=== PATIENT | female | born 1980 | race Caucasian/White ===

== ENCOUNTER 2018-04-03 13:40 | Emergency (ER) | payer OTHER ==
[2018-04-03 14:35] LABS: ABS Basophils 0.1 10^3/ul (0-0.2); ABS Eosinophils 0.1 10^3/ul (0-0.6); ABS Lymphocytes 1.8 10^3/ul (1.0-4.8); ABS Monocytes 0.5 10^3/ul (0-0.8); ABS Nucleated RBC 0 10^3/ul; Eosinophil % 1.6 % (0-6); Hematocrit 39 % (35-47); Hemoglobin 13.3 g/dl (12.0-16.0); Lymphocyte % 23.6 % (25-47); Mean Corpuscular HGB Conc 34 g/dl (31-36); Mean Corpuscular Hemoglobin 31 pg (27-31); Mean Corpuscular Volume 92 fL (80-97); Mean Platelet Volume 7.6 fL (7.4-10.4); Nucleated Red Blood Cells % 0; Platelet Count 262 10^3/ul (150-450); Red Blood Count 4.23 10^6/ul (4.00-5.40); Red Cell Distribution Width 13 % (10.5-15); White Blood Count 7.5 10^3/ul (3.5-10.8)
--- OUTSIDE RECORDS SUMMARY | 2018-04-03 14:39 | XMS REPORT ---
:1980 Author Organization [facility] Address [address] [place] [address] Care Team Providers Name Role Phone Marquita Alatorre Unavailable Unavailable PROBLEMS Type Condition ICD9-CM XKI66-NE Onset Condition SNOMED Code Code Code Dates Status Problem Post-traumatic F43.10 Active 09806562 stress disorder, unspecified Problem Major depressive F32.9 Active 28083016 disorder, single episode, unspecified Problem Generalized anxiety F41.1 Active 53535436 disorder Problem Slow transit K59.01 Active 83084664 constipation Problem Incomplete tear of M75.112 Active 295639324 left rotator cuff Problem Migraine without G43.009 Active 217848075 aura and without status migrainosus, not intractable Problem Other chronic pain G89.29 Active 82903949 Problem Scabies B86 Active 764670134 Problem Chronic tension-type G44.229 Active 255217128 headache, not intractable Problem Tobacco use Z72.0 Active 764256183 Problem Asthma, unspecified J45.909 Active 90527261 asthma severity, unspecified whether complicated, unspecified whether persistent Problem Gastroesophageal K21.9 Active 732876139 reflux disease without esophagitis Problem Pure E78.00 Active 398071534 hypercholesterolemia , unspecified Problem Hypersomnia, G47.10 Active 88733836 unspecified Problem Essential (primary) I10 Active 51371620 hypertension Problem PCOS (polycystic E28.2 Active 62005596 ovarian syndrome) Problem Vitamin D E55.9 Active 28790538 deficiency, unspecified Problem Obstructive sleep G47.33 Active 78897741 apnea (adult) (pediatric) Problem Type 2 diabetes E11.9 Active 180780705 mellitus without complications ALLERGIES No Information ENCOUNTERS Encounter Location Date Diagnosis [address] Feb, [id number] Feb, [id number] [address] Feb, Generalized anxiety disorder F41.1 [id number] ; Type 2 diabetes mellitus without complications E11.9 ; Gastroesophageal reflux disease without esophagitis K21.9 ; Slow transit constipation K59.01 and Anemia due to other cause, not classified D64.[address], [place] Feb, [id number] [address] Dec, [address] Dec, [address] Dec, [address] Nov, Status post arthroscopy of [id number] shoulder Z98.890 ; Pain in right shoulder M25.511 and Pain in left shoulder M25.[address], [place] Nov, [id number] [address] Nov, Pre-op testing Z01.[id number] Nov, [address] Oct, [id number] [address] September, [address], [place] September, [address] September, [address] September, Migraine without aura and without [id number] status migrainosus, not intractable G43.009 and Chronic tension-type headache, not intractable G44.[address], [place] September, [address] September, [id number] [address] [place], [id number] [facility] [address] [facility], [place] Aug, [id number] [facility] [address] [facility] Aug, Dizziness R42 ; Pain in left [id number] shoulder M25.512 and Other chronic pain G89.29 [facility] [address] [facility], [place] Aug, [id number] [facility] [address] [facility], [place] Jul, [id number] [facility] [address] [facility] Jul, [id number] [facility] [address] [place] [address], [place], [id number] [facility] [address], [place], [address], [place] Jun, Dizziness R42 [id number], [place] May, [id number] [facility] [address] [place] [address], [place], [address], [place] May, Obstructive sleep apnea ( adult) [id number] (pediatric) G47.33 ; Type 2 diabetes mellitus without complications E11.9 and Major depressive disorder, single episode, unspecified F32.[address], [place] Apr, Generalized anxiety disorder F41.1 [id number] IMMUNIZATIONS No Known Immunizations SOCIAL HISTORY Never Assessed REASON FOR REFERRAL FUNCTIONAL STATUS PLAN OF CARE VITAL SIGNS MEDICATIONS Unknown Medications PROCEDURES No Known procedures RESULTS No Results REASON FOR VISIT linzess coverage Insurance Providers [facility] Member Patient Patient Patient Patient Patient Subscriber Subscriber Subscriber Group Insurance Plan Plan Plan Plan ID Relationship Address Phone Name Date of ID Name Date of No Type Insurance Insurance Insurance Coverage to Subscriber Address Phone Name Dates [place] [address] self Marquita [id number] Medicaid [id number] Medicaid Edith [address] [facility] [address] Medicaid Computer Medicaid self Marquita [id number] [facility] [address] [facility] [id number] [place] [address] [place] self Marquita [id number] MEDICAID [place]ICA[place] [id number] MEDICAL (GENERAL) HISTORY Type Description Date Medical History Asthma, unspecified asthma severity, unspecified whether complicated, unspecified whether persistent Medical History Hypersomnia, unspecified Medical History Gastroesophageal reflux disease without esophagitis Medical History Abnormal findings on diagnostic imaging of other parts of digestive tract Medical History Major depressive disorder, single episode, unspecified Medical History Pain in left shoulder Medical History Acute embolism and thrombosis of left popliteal vein Medical History Migraine without aura and without status migrainosus, not intractable Medical History Generalized anxiety disorder Medical History Vitamin D deficiency, unspecified Medical History Post-traumatic stress disorder, unspecified Medical History Scabies Medical History Tobacco use Medical History Pure hypercholesterolemia, unspecified Medical History PCOS (polycystic ovarian syndrome) Medical History Incomplete tear of left rotator cuff Surgical History Colonoscopy to the hepatic flexure area. 05/25/2015 Surgical History Diagnostic laparoscopy (pelvis) 04/27/2015 Surgical History cholecystectomy 1999 Surgical History appendectomy 2001 Surgical History salpingo-oophorectomy 2001 Surgical History hysterectomy, total with unilateral salpingo-oophorectomy 2010 (USO) Surgical History carpal tunnel release bilateral 2011 Surgical History Hernia Repair 2005 Surgical History section 10/25/2002 Surgical History gastric bypass 11/2016 Surgical History L arthroscopy shoulder 12/05/2017
[2018-04-03 14:55] LABS: EGFR Non-African American 102.8 (>60)
[2018-04-03 19:57] VITALS: BP 143/78
--- NOTE | 2018-04-03 21:20 | ED ---
Lower Extremity - HPI Summary HPI Summary: patient is a 38-year-old female with a history of a DVT and PE presenting to the ED with right lower extremity pain 2 days. She denies any known injury or trauma. She states she had a gastric bypass 1 year ago and following that had a DVT and PE. She was on blood thinners for a while, however denies any at this time. She states she has been having intermittent calf pain with cramping in the bilateral legs for several months, however she states this feels "like my previous DVT." Denies any erythema or warmth. She remains ambulatory. She is not taken anything for pain or used heat to the area. She denies any shortness of breath. - History of Current Complaint Chief Complaint: EDExtremityLower Stated Complaint: RT LEG PAIN/HISTORY OF DVT Time Seen by Provider: 04/03/18 17:39 Hx Obtained From: Patient Onset of Pain: Immediate Severity Initially: Moderate Severity Currently: Moderate Pain Intensity: 1 Pain Scale Used: 0-10 Numeric Timing: Constant Location: Is Discrete @ - right lower extremity pain without swelling or erythema Aggravating Factor(s): Standing, Ambulation Alleviating Factor(s): Rest Able to Bear Weight: Yes - Risk Factors Gout Risk Factors: Age Over 40 DVT Risk Factors: Prior DVT, Prior PE Septic Arthritis Risk Factor: Negative - Allergies/Home Medications Allergies/Adverse Reactions: Allergies Allergy/AdvReac Type Severity Reaction Status Date / Time latex Allergy Unknown Verified 04/03/18 13:48 Reaction Details morphine Allergy Anaphylatic Verified 04/03/18 13:48 Shock quetiapine [From Seroquel] Allergy Agitation Verified 04/03/18 13:48 sertraline [From Zoloft] Allergy Agitation Verified 04/03/18 13:48 sumatriptan [From Imitrex] Allergy Anaphylatic Verified 04/03/18 13:48 Shock PMH/Surg Hx/FS Hx/Imm Hx Previously Healthy: Yes Cardiovascular History: Denies: Hx Hypertension - Immunization History Hx Pertussis Vaccination: No Immunizations Up to Date: Yes Infectious Disease History: No Infectious Disease History: Denies: Traveled Outside the [place] in Last 30 Days - Social History Occupation: Unemployed Lives: With Family Alcohol Use: None Hx Substance Use: No Substance Use Type: Reports: None Hx Tobacco Use: Yes Smoking Status (MU): Current Every Day Smoker Review of Systems Constitutional: Negative Negative: Fever, Chills, Fatigue, Skin Diaphoresis Negative: Palpitations Negative: Shortness Of Breath, Cough Genitourinary: Negative Positive: no symptoms reported, see HPI Positive: Myalgia Skin: Negative Neurological: Negative All Other Systems Reviewed And Are Negative: Yes Physical Exam Triage Information Reviewed: Yes Vital Signs On Initial Exam: Initial Vitals Temp Pulse Resp BP Pulse Ox 98.1 F 80 18 128/74 100 04/03/18 13:43 04/03/18 13:43 04/03/18 13:43 04/03/18 13:43 04/03/18 13:43 Vital Signs Reviewed: Yes Appearance: Positive: Well-Appearing, Well-Nourished Skin: Positive: Warm, Skin Color Reflects Adequate Perfusion Head/Face: Positive: Normal Head/Face Inspection Eyes: Positive: EOMI, BRANDI, Conjunctiva Clear Neck: Positive: Supple Respiratory/Lung Sounds: Positive: Clear to Auscultation, Breath Sounds Present Cardiovascular: Positive: RRR, Pulses are Symmetrical in both Upper and Lower Extremities Musculoskeletal: Positive: Pain @ - right lower extremity pain without swelling or erythema Neurological: Positive: Speech Normal Psychiatric: Positive: Normal, Affect/Mood Appropriate Diagnostics - Vital Signs Vital Signs Temp Pulse Resp BP Pulse Ox 04/03/18 19:55 98.3 F 78 18 143/78 99 04/03/18 19:32 61 109/65 99 04/03/18 19:02 57 104/66 98 04/03/18 19:00 57 97 04/03/18 18:32 65 119/78 97 04/03/18 18:02 58 108/71 99 04/03/18 18:00 80 100 04/03/18 17:32 66 112/74 99 04/03/18 15:30 58 16 107/68 100 04/03/18 13:43 98.1 F 80 18 128/74 100 - Laboratory Lab Results: Lab Results 04/03/18 04/03/18 04/03/18 Range/Units 14:25 14:25 14:25 WBC 7.5 (3.5-10.8) 10^3/ul RBC 4.23 (4.00-5.40) 10^6/ul Hgb 13.3 (12.0-16.0) g/dl Hct 39 (35-47) % MCV 92 (80-97) fL MCH 31 (27-31) pg MCHC 34 (31-36) g/dl RDW 13 (10.5-15) % Plt Count 262 (150-450) 10^3/ul MPV 7.6 (7.4-10.4) fL Neut % (Auto) 67.6 (38-83) % Lymph % (Auto) 23.6 L (25-47) % [place] % (Auto) 6.5 (0-7) % Eos % (Auto) 1.6 (0-6) % Baso % (Auto) 0.7 (0-2) % Absolute Neuts (auto) 5.0 (1.5-7.7) 10^3/ul Absolute Lymphs (auto) 1.8 (1.0-4.8) 10^3/ul Absolute Monos (auto) 0.5 (0-0.8) 10^3/ul Absolute Eos (auto) 0.1 (0-0.6) 10^3/ul Absolute Basos (auto) 0.1 (0-0.2) 10^3/ul Absolute Nucleated RBC 0 10^3/ul Nucleated RBC % 0 Sodium 139 (135-145) mmol/L Potassium 4.0 (3.5-5.0) mmol/L Chloride 109 (101-111) mmol/L Carbon Dioxide 27 (22-32) mmol/L Anion Gap 3 (2-11) mmol/L BUN 18 (6-24) mg/dL Creatinine 0.64 (0.51-0.95) mg/dL Est GFR ( Amer) 124.4 (>60) Est GFR (Non-Af Amer) 102.8 (>60) BUN/Creatinine Ratio 28.1 H (8-20) Glucose 133 H (70-100) mg/dL Lactic Acid 0.6 (0.5-2.0) mmol/L Calcium 9.0 (8.6-10.3) mg/dL Total Bilirubin 0.50 (0.2-1.0) mg/dL AST 13 (13-39) U/L ALT 14 (7-52) U/L Alkaline Phosphatase 72 (34-104) U/L Troponin I 0.00 (<0.04) ng/mL Total Protein 6.5 (6.4-8.9) g/dL Albumin 4.0 (3.2-5.2) g/dL Globulin 2.5 (2-4) g/dL Albumin/Globulin Ratio 1.6 (1-3) Result Diagrams: 04/03/18 14:25 04/03/18 14:25 Lab Statement: Any lab studies that have been ordered have been reviewed, and results considered in the medical decision making process. Lower Extremity Course/Dx - Course Course Of Treatment: During the course treatment, the patient is evaluated for right-sided lower extremity pain. Denies any swelling, erythema, warmth. Previous DVT to the left leg as well as PE following gastric bypass surgery. DVT ultrasound of the right lower extremity obtained which shows no evidence of a DVT. Discussed with the patient possible cramping and have encouraged magnesium due to her bilateral muscle cramping in the lower extremities. Discussed ibuprofen as well as moist heat. Patient will be discharged at this time and voices no concerns. - Diagnoses Differential Diagnosis/HQI/PQRI: Positive: DVT, Sprain, Strain Provider Diagnoses: Right calf pain Discharge - Sign-Out/Discharge Documenting (check all that apply): Patient Departure - Discharge Plan Condition: Stable Disposition: HOME Forms: *Work Release Referrals: No Primary Care Phys,NOPCP [Primary Care Provider] - Additional Instructions: Magnesium Glycinate 400mg at bedtime Moist heat to the area - Billing Disposition and Condition Condition: STABLE Disposition: Home
== END 2018-04-03 19:55 | disposition home or self-care (01) ==
LOC: ED 13:40
DX: M79.661 Pain in right lower leg (principal); Z86.718 Personal history of other venous thrombosis and embolism; Z88.5 Allergy status to narcotic agent; Z88.8 Allergy status to other drugs, medicaments and biological substances; Z91.040 Latex allergy status; F17.200 Nicotine dependence, unspecified, uncomplicated
CPT/HCPCS: 36415; 71046; 80053; 83605; 84484; 85025; 93005; 99282

== ENCOUNTER 2018-06-08 21:33 | Emergency (ER) | payer OTHER ==
[2018-06-08] MEDS ORDERED: NS 0.9% 1000 ML* 1,000 ML IV ONE (23:15)
[2018-06-08] MEDS ORDERED: fentaNYL* 50 MCG/ML 2 ML VIAL (100 MCG VIAL) IV SLOW PU ONE (23:15)
[2018-06-08 23:44] LABS: ABS Basophils 0.1 10^3/ul (0-0.2); ABS Eosinophils 0.1 10^3/ul (0-0.6); ABS Lymphocytes 2.6 10^3/ul (1.0-4.8); ABS Monocytes 0.6 10^3/ul (0-0.8); ABS Neutrophils 8.2 10^3/ul (1.5-7.7); ABS Nucleated RBC 0 10^3/ul; Eosinophil % 0.7 %; Hematocrit 43 % (35-47); Hemoglobin 14.2 g/dl (12.0-16.0); Lymphocyte % 22.6 %; Mean Corpuscular HGB Conc 33 g/dl (31-36); Mean Corpuscular Hemoglobin 30 pg (27-31); Mean Corpuscular Volume 90 fL (80-97); Mean Platelet Volume 7.7 fL (7.4-10.4); Nucleated Red Blood Cells % 0.1; Platelet Count 279 10^3/ul (150-450); Red Blood Count 4.72 10^6/ul (4.00-5.40); Red Cell Distribution Width 12 % (10.5-15); White Blood Count 11.6 10^3/ul (3.5-10.8)
[2018-06-08 23:59] LABS: Urine Color Yellow
[2018-06-09] LABS: Urine Appearance Cloudy; Urine Bacteria Absent (Absent); Urine Bilirubin Negative (Negative); Urine Blood Negative (Negative); Urine Glucose Negative (Negative); Urine Ketones 1+ (Negative); Urine Nitrite Negative (Negative); Urine Protein 1+(30 mg/dL) (Negative); Urine Red Blood Cell Absent (Absent); Urine Specific Gravity 1.026 (1.010-1.030); Urine Urobilinogen Negative (Negative); Urine White Blood Cell Trace(0-5/hpf) (Absent)
[2018-06-09 00:01] LABS: ALT 14 U/L (7-52); AST 15 U/L (13-39); Albumin 4.3 g/dL (3.2-5.2); Albumin/Globulin Ratio 1.4 (1-3); Alkaline Phosphatase 84 U/L (34-104); Anion Gap 7 mmol/L (2-11); BUN/Creatinine Ratio 19.4 (8-20); Blood Urea Nitrogen 14 mg/dL (6-24); C Reactive Protein 1.43 mg/L (<8.01); CO2 Carbon Dioxide 29 mmol/L (22-32); Calcium 9.8 mg/dL (8.6-10.3); Chloride 103 mmol/L (101-111); EGFR Non-African American 89.7 (>60); Globulin 3.1 g/dL (2-4); Glucose 85 mg/dL (70-100); Potassium 3.5 mmol/L (3.5-5.0); Sodium 139 mmol/L (135-145); Total Protein 7.4 g/dL (6.4-8.9)
[2018-06-09] MEDS ORDERED: Iohexol 300* (CONTRAST) 10 ML SDV IV ONE (00:22)
--- NOTE | 2018-06-09 01:03 | ED ---
Back Pain - HPI Summary HPI Summary: Patient complains of bilateral lower back pain 2 weeks with intermittent radiation to abdomen. Back pain worse with movement, twisting, bending. Back pain radiates to lower abdomen. Denies trauma, fever, cough, sore throat, CP, SOB, N/V/D, change in urine, change in BM, vaginal symptoms. Medical history is chronic migraines. Abdominal surgical history includes gastric bypass 1 year ago, partial hysterectomy with left ovary remaining. Back pain currently rated 9/10, abdominal pain rated 4/10. - History of Current Complaint Chief Complaint: EDBackInjuryPain Stated Complaint: LOWER BACK PAIN Time Seen by Provider: 06/08/18 22:58 Hx Obtained From: Patient Onset/Duration: Gradual Onset Onset/Duration: Started Weeks Ago Timing: Constant Severity Initially: Severe Severity Currently: Severe Pain Intensity: 9 Pain Scale Used: 0-10 Numeric Character: Sharp, Aching Aggravating Symptom(s): Movement, Lifting, Bending Alleviating Symptom(s): Rest, Position - Allergies/Home Medications Allergies/Adverse Reactions: Allergies Allergy/AdvReac Type Severity Reaction Status Date / Time latex Allergy Unknown Verified 04/03/18 13:48 Reaction Details morphine Allergy Anaphylatic Verified 04/03/18 13:48 Shock quetiapine [From Seroquel] Allergy Agitation Verified 04/03/18 13:48 sertraline [From Zoloft] Allergy Agitation Verified 04/03/18 13:48 sumatriptan [From Imitrex] Allergy Anaphylatic Verified 04/03/18 13:48 Shock Home Medications: Home Medications ARIPiprazole TAB* [Abilify 20 MG TAB*] 20 mg PO DAILY 06/08/18 [History Confirmed 06/08/18] Topiramate TAB(*) [Topamax 25 MG tab] 25 mg PO TID 06/08/18 [History Confirmed 06/08/18] levETIRAcetam [Keppra] 500 mg PO BID 06/08/18 [History Confirmed 06/08/18] PMH/Surg Hx/FS Hx/Imm Hx Endocrine/Hematology History: Denies: Hx Diabetes Cardiovascular History: Denies: Hx Hypertension History: Denies: Hx Dialysis, Hx Renal Disease Sensory History: Denies: Hx Eye Prosthesis EENT History: Denies: Hx Deafness Neurological History: Denies: Hx Developmental Delay Psychiatric History: Denies: Hx Autism - Surgical History Surgery Procedure, Year, and Place: HYSTERECTOMY Infectious Disease History: No Infectious Disease History: Denies: Traveled Outside the [place] in Last 30 Days - Social History Alcohol Use: None Hx Substance Use: No Substance Use Type: Reports: None Hx Tobacco Use: Yes Smoking Status (MU): Current Every Day Smoker Review of Systems Constitutional: Negative Eyes: Negative ENT: Negative Cardiovascular: Negative Respiratory: Negative Positive: Abdominal Pain Genitourinary: Negative Musculoskeletal: Other Skin: Negative Neurological: Negative Psychological: Normal All Other Systems Reviewed And Are Negative: Yes Physical Exam - Summary Physical Exam Summary: Tenderness along paraspinal muscles of lower T-spine and L-spine. Mild diffuse tenderness with palpation of abdomen. Physical exam otherwise unremarkable. Patient flexes and extends bilateral lower extremities with some pain. PMS intact distally on bilateral lower extremities. Triage Information Reviewed: Yes Vital Signs On Initial Exam: Initial Vitals Temp Pulse Resp BP Pulse Ox 96.9 F 95 18 128/96 99 06/08/18 21:35 06/08/18 21:35 06/08/18 21:35 06/08/18 21:35 06/08/18 21:35 Vital Signs Reviewed: Yes Appearance: Positive: Well-Appearing Skin: Positive: Warm Head/Face: Positive: Normal Head/Face Inspection Eyes: Positive: Normal Neck: Positive: Supple Respiratory/Lung Sounds: Positive: Clear to Auscultation Cardiovascular: Positive: Normal Abdomen Description: Positive: Other: Musculoskeletal: Positive: Normal Neurological: Positive: Normal Psychiatric: Positive: Normal AVPU Assessment: Alert - Hannah Coma Scale Best Eye Response: 4 - Spontaneous Best Motor Response: 6 - Obeys Commands Best Verbal Response: 5 - Oriented Coma Scale Total: 15 Diagnostics - Vital Signs Vital Signs Temp Pulse Resp BP Pulse Ox 06/08/18 23:41 16 06/08/18 23:28 68 140/96 100 06/08/18 21:35 96.9 F 95 18 128/96 99 - Laboratory Lab Results: Lab Results 06/08/18 06/08/18 06/08/18 Range/Units 23:30 23:30 23:30 WBC 11.6 H (3.5-10.8) 10^3/ul RBC 4.72 (4.00-5.40) 10^6/ul Hgb 14.2 (12.0-16.0) g/dl Hct 43 (35-47) % MCV 90 (80-97) fL MCH 30 (27-31) pg MCHC 33 (31-36) g/dl RDW 12 (10.5-15) % Plt Count 279 (150-450) 10^3/ul MPV 7.7 (7.4-10.4) fL Neut % (Auto) 70.8 % Lymph % (Auto) 22.6 % [place] % (Auto) 5.2 % Eos % (Auto) 0.7 % Baso % (Auto) 0.7 % Absolute Neuts (auto) 8.2 H (1.5-7.7) 10^3/ul Absolute Lymphs (auto) 2.6 (1.0-4.8) 10^3/ul Absolute Monos (auto) 0.6 (0-0.8) 10^3/ul Absolute Eos (auto) 0.1 (0-0.6) 10^3/ul Absolute Basos (auto) 0.1 (0-0.2) 10^3/ul Absolute Nucleated RBC 0 10^3/ul Nucleated RBC % 0.1 Sodium 139 (135-145) mmol/L Potassium 3.5 (3.5-5.0) mmol/L Chloride 103 (101-111) mmol/L Carbon Dioxide 29 (22-32) mmol/L Anion Gap 7 (2-11) mmol/L BUN 14 (6-24) mg/dL Creatinine 0.72 (0.51-0.95) mg/dL Est GFR ( Amer) 108.6 (>60) Est GFR (Non-Af Amer) 89.7 (>60) BUN/Creatinine Ratio 19.4 (8-20) Glucose 85 (70-100) mg/dL Lactic Acid (0.5-2.0) mmol/L Calcium 9.8 (8.6-10.3) mg/dL Total Bilirubin 0.50 (0.2-1.0) mg/dL AST 15 (13-39) U/L ALT 14 (7-52) U/L Alkaline Phosphatase 84 (34-104) U/L C-Reactive Protein 1.43 (<8.01) mg/L Total Protein 7.4 (6.4-8.9) g/dL Albumin 4.3 (3.2-5.2) g/dL Globulin 3.1 (2-4) g/dL Albumin/Globulin Ratio 1.4 (1-3) Lipase < 10 L (11.0-82.0) U/L Urine Color Yellow Urine Appearance Cloudy Urine pH 5.0 (5-9) Ur Specific Bowman 1.026 (1.010-1.030) Urine Protein 1+(30 mg/dl) A (Negative) Urine Ketones 1+ A (Negative) Urine Blood Negative (Negative) Urine Nitrate Negative (Negative) Urine Bilirubin Negative (Negative) Urine Urobilinogen Negative (Negative) Ur Leukocyte Esterase Negative (Negative) Urine WBC (Auto) Trace(0-5/hpf) (Absent) Urine RBC (Auto) Absent (Absent) Ur Squamous Epith Cells Present A (Absent) Urine Bacteria Absent (Absent) Urine Glucose Negative (Negative) Urine Ascorbic Acid Not Reportable 06/08/18 Range/Units 23:30 WBC (3.5-10.8) 10^3/ul RBC (4.00-5.40) 10^6/ul Hgb (12.0-16.0) g/dl Hct (35-47) % MCV (80-97) fL MCH (27-31) pg MCHC (31-36) g/dl RDW (10.5-15) % Plt Count (150-450) 10^3/ul MPV (7.4-10.4) fL Neut % (Auto) % Lymph % (Auto) % [place] % (Auto) % Eos % (Auto) % Baso % (Auto) % Absolute Neuts (auto) (1.5-7.7) 10^3/ul Absolute Lymphs (auto) (1.0-4.8) 10^3/ul Absolute Monos (auto) (0-0.8) 10^3/ul Absolute Eos (auto) (0-0.6) 10^3/ul Absolute Basos (auto) (0-0.2) 10^3/ul Absolute Nucleated RBC 10^3/ul Nucleated RBC % Sodium (135-145) mmol/L Potassium (3.5-5.0) mmol/L Chloride (101-111) mmol/L Carbon Dioxide (22-32) mmol/L Anion Gap (2-11) mmol/L BUN (6-24) mg/dL Creatinine (0.51-0.95) mg/dL Est GFR ( Amer) (>60) Est GFR (Non-Af Amer) (>60) BUN/Creatinine Ratio (8-20) Glucose (70-100) mg/dL Lactic Acid 0.8 (0.5-2.0) mmol/L Calcium (8.6-10.3) mg/dL Total Bilirubin (0.2-1.0) mg/dL AST (13-39) U/L ALT (7-52) U/L Alkaline Phosphatase (34-104) U/L C-Reactive Protein (<8.01) mg/L Total Protein (6.4-8.9) g/dL Albumin (3.2-5.2) g/dL Globulin (2-4) g/dL Albumin/Globulin Ratio (1-3) Lipase (11.0-82.0) U/L Urine Color Urine Appearance Urine pH (5-9) Ur Specific Bowman (1.010-1.030) Urine Protein (Negative) Urine Ketones (Negative) Urine Blood (Negative) Urine Nitrate (Negative) Urine Bilirubin (Negative) Urine Urobilinogen (Negative) Ur Leukocyte Esterase (Negative) Urine WBC (Auto) (Absent) Urine RBC (Auto) (Absent) Ur Squamous Epith Cells (Absent) Urine Bacteria (Absent) Urine Glucose (Negative) Urine Ascorbic Acid Result Diagrams: 06/08/18 23:30 06/08/18 23:30 Lab Statement: Any lab studies that have been ordered have been reviewed, and results considered in the medical decision making process. Back Pain Course/Dx - Course Course Of Treatment: Patient complains of bilateral lower back pain 2 weeks with intermittent radiation to abdomen. Back pain worse with movement, twisting , bending. Back pain radiates to lower abdomen. Denies trauma, fever, cough, sore throat, CP, SOB, N/V/D, change in urine, change in BM, vaginal symptoms. Medical history is chronic migraines. Abdominal surgical history includes gastric bypass 1 year ago, partial hysterectomy with left ovary remaining. Back pain currently rated 9/10, abdominal pain rated 4/10. Physical exam: Tenderness along paraspinal muscles of lower T-spine and L-spine. Mild diffuse tenderness with palpation of abdomen. Physical exam otherwise unremarkable. Patient flexes and extends bilateral lower extremities with some pain. PMS intact distally on bilateral lower extremities. Vital signs within normal limits. WBC 11.6. Labs otherwise unremarkable. CT abdomen and pelvis with contrast positive only for left ovarian cyst. Diagnosis likely muscle spasm of the back. Rx for Valium. Also advised patient to take ibuprofen for pain. - Diagnoses Provider Diagnoses: Muscle spasm Discharge - Sign-Out/Discharge Documenting (check all that apply): Patient Departure - Discharge Plan Condition: Stable Disposition: HOME Prescriptions: Diazepam TAB(*) [Valium TAB(*)] 5 mg PO TID PRN 3 Days #6 tab MDD 3 tabs PRN Reason: Pain Patient Education Materials: Muscle Spasm (ED) Forms: *Work Release Referrals: No Primary Care Phys,NOPCP [Primary Care Provider] - Additional Instructions: Take Valium as directed. Take ibuprofen 600 mg up to 3 times a day. Follow-up with primary care. Return to the ED for any new or worsening symptoms - Billing Disposition and Condition Condition: STABLE Disposition: Home
[2018-06-09] MEDS ORDERED: Diazepam TAB(*) 5 MG PO ONE (02:09)
[2018-06-09 02:31] VITALS: BP 116/78
== END 2018-06-09 02:30 | disposition home or self-care (01) ==
LOC: ED 21:33
DX: M62.830 Muscle spasm of back (principal); M54.5 Low back pain; K44.9 Diaphragmatic hernia without obstruction or gangrene; Z98.84 Bariatric surgery status; Z90.710 Acquired absence of both cervix and uterus; Z88.5 Allergy status to narcotic agent; Z88.8 Allergy status to other drugs, medicaments and biological substances; Z91.040 Latex allergy status; Z72.0 Tobacco use
CPT/HCPCS: 36415; 74177; 80053; 81003; 81015; 83605; 83690; 85025; 86140; 87086; 96374; 99282; A9270-GY; J3010; Q9967

== ENCOUNTER 2018-08-03 21:11 | Emergency (ER) | payer BC, OTHER ==
--- OUTSIDE RECORDS SUMMARY | 2018-08-03 21:31 | XMS REPORT ---
:1980 Author Organization [facility] Address [address] [place] [address] Care Team Providers Name Role Phone Marquita Alatorre Unavailable Unavailable PROBLEMS Type Condition ICD9-CM DAJ17-BL Onset Condition SNOMED Code Code Code Dates Status Problem Pure E78.00 Active 637900353 hypercholesterolemia , unspecified Problem Gastroesophageal K21.9 Active 302630530 reflux disease without esophagitis Problem Asthma, unspecified J45.909 Active 12913039 asthma severity, unspecified whether complicated, unspecified whether persistent Problem Tobacco use Z72.0 Active 511027456 Problem Obstructive sleep G47.33 Active 12090962 apnea (adult) (pediatric) Problem PCOS (polycystic E28.2 Active 58711534 ovarian syndrome) Problem Essential (primary) I10 Active 01798562 hypertension Problem Hypersomnia, G47.10 Active 06937440 unspecified Problem Post-traumatic F43.10 Active 41857327 stress disorder, unspecified Problem Generalized anxiety F41.1 Active 38379582 disorder Problem Major depressive F32.9 Active 42255204 disorder, single episode, unspecified Problem Incomplete tear of M75.112 Active 979305837 left rotator cuff Problem Type 2 diabetes E11.9 Active 334611026 mellitus without complications Problem Slow transit K59.01 Active 52040798 constipation Problem Vitamin D E55.9 Active 05393788 deficiency, unspecified Problem Other chronic pain G89.29 Active 33562692 Problem Migraine without G43.009 Active 904604670 aura and without status migrainosus, not intractable Problem Chronic tension-type G44.229 Active 500203844 headache, not intractable Problem Scabies B86 Active 900872842 ALLERGIES No Information ENCOUNTERS Encounter Location Date Diagnosis [facility] [address], [place] Jul, [id number] [address], [place] May, [id number] [address], [place] Mar, [id number] [address], [place] Feb, [address], [place] Feb, [id number] [address], [place] Feb, Generalized anxiety disorder F41.1 572624482 ; Type 2 diabetes mellitus without complications E11.9 ; Gastroesophageal reflux disease without esophagitis K21.9 ; Slow transit constipation K59.01 and Anemia due to other cause, not classified D64.[address], [place] Feb, [id number] [address], [place] Dec, [address], [place] Dec, [address], [place] Dec, [address], [place] Nov, Status post arthroscopy of [id number] shoulder Z98.890 ; Pain in right shoulder M25.511 and Pain in left shoulder M25.[address], [place] Nov, [id number] [address] Nov, Pre-op testing Z01.[id number], [place] Nov, [address], [place] Oct, [id number] [address], [place] September, [address], [place] September, [address], [place] September, [address], [place] September, Migraine without aura and without 313561499 status migrainosus, not intractable G43.009 and Chronic tension-type headache, not intractable G44.[address], [place] September, [address] September, [id number] [address] Aug, [address] Aug, [id number] [address] Aug, Dizziness R42 ; Pain in left [id number] shoulder M25.512 and Other chronic pain G89.[address], [place] Aug, [id number] [address], [place] Jul, [id number] [address] Jul, [id number] [address] Jun, [address] Jun, [address] Jun, Dizziness R42 [id number], [place] May, [id number] [address], [place] May, [address] May, Obstructive sleep apnea ( adult) 092473618 (pediatric) G47.33 ; Type 2 diabetes mellitus without complications E11.9 and Major depressive disorder, single episode, unspecified F32.[address] Apr, Generalized anxiety disorder F41.1 [id number] IMMUNIZATIONS No Known Immunizations SOCIAL HISTORY Never Assessed REASON FOR REFERRAL FUNCTIONAL STATUS PLAN OF CARE VITAL SIGNS MEDICATIONS Medication Instructions Dosage Frequency Start End Date Duration Status Date Linzess 290 MCG Orally Once a day 1 capsule 24h 30 days Active PROCEDURES No Known procedures RESULTS No Results REASON FOR VISIT REFILL MEDICATION/ PT HAS NEW INS Insurance Providers [facility]ly [facility] Member Patient Patient Patient Patient Patient Subscriber Subscriber Subscriber Group Insurance Plan Plan Plan Plan ID Relationship Address Phone Name Date of ID Name Date of No Type Insurance Insurance Insurance Coverage to Subscriber Address Phone Name Dates Medicaid Computer Medicaid self Marquita [id number] [facility] [employer] [address] [facility] [id number] [address] self Marquita [id number] Medicaid [id number] Medicaid [place] [address] [place] [id number] Rj [address] self Marquita [id number] MEDICAID [place] [id number] MEDICAL (GENERAL) HISTORY Type Description Date Medical [...]
[2018-08-04] MEDS ORDERED: NS 0.9% 1000 ML** 1,000 ML IV ONE (00:29)
[2018-08-04 00:42] LABS: ABS Basophils 0.1 10^3/ul (0-0.2); ABS Eosinophils 0.1 10^3/ul (0-0.6); ABS Monocytes 0.7 10^3/ul (0-0.8); ABS Neutrophils 5.4 10^3/ul (1.5-7.7); ABS Nucleated RBC 0 10^3/ul; Eosinophil % 1.4 %; Hematocrit 40 % (35-47); Hemoglobin 13.4 g/dl (12.0-16.0); Lymphocyte % 24.3 %; Mean Corpuscular HGB Conc 34 g/dl (31-36); Mean Corpuscular Hemoglobin 30 pg (27-31); Mean Corpuscular Volume 90 fL (80-97); Mean Platelet Volume 7.8 fL (7.4-10.4); Nucleated Red Blood Cells % 0; Platelet Count 196 10^3/ul (150-450); Red Blood Count 4.46 10^6/ul (4.00-5.40); Red Cell Distribution Width 13 % (10.5-15); White Blood Count 8.3 10^3/ul (3.5-10.8)
[2018-08-04] MEDS ORDERED: Metoclopramide IV* 5 MG/ML 2 ML VIAL IV ONE (00:44)
[2018-08-04] MEDS ORDERED: Ketorolac INJ* 30 MG/ML 1 ML VIAL IV ONE (00:44)
[2018-08-04] MEDS ORDERED: diPHENhydraMINE IV* 50 MG/ML 1 ml VIAL (BENADRYL) IV ONE (00:44)
[2018-08-04] MEDS ORDERED: Benzonatate CAP* 100 MG PO ONE (00:45)
[2018-08-04] MEDS ORDERED: Albuterol/Ipratropium NEB.SOL* Albuterol 2.5 MG/Ipratropium 0.5 MG 3 ML INH ONE (00:45)
[2018-08-04] MEDS ORDERED: Ibuprofen TAB* 600 MG PO ONE (00:46)
[2018-08-04] MEDS ORDERED: Lidocaine 2% VISCOUS* 15 ML UDC PO ONE (00:46)
[2018-08-04 00:53] LABS: INR 1.02 (0.77-1.02)
[2018-08-04 00:58] LABS: Albumin 4.3 g/dL (3.2-5.2); Albumin/Globulin Ratio 1.7 (1-3); BUN/Creatinine Ratio 16.4 (8-20); Calcium 9.1 mg/dL (8.6-10.3); EGFR Non-African American 97.5 (>60); Globulin 2.5 g/dL (2-4); Potassium 3.7 mmol/L (3.5-5.0); Total Bilirubin 0.3 mg/dL (0.2-1.0); Total Protein 6.8 g/dL (6.4-8.9)
[2018-08-04 01:33] LABS: Urine Appearance Cloudy; Urine Bilirubin Negative (Negative); Urine Blood Negative (Negative); Urine Color Yellow; Urine Glucose Negative (Negative); Urine Ketones Trace (Negative); Urine Nitrite Negative (Negative); Urine Protein Negative (Negative); Urine Specific Gravity 1.019 (1.010-1.030); Urine Urobilinogen Positive (Negative)
[2018-08-04] MEDS ORDERED: Ibuprofen TAB* 600 MG ONE (01:41)
--- NOTE | 2018-08-04 01:50 | ED ---
Influenza-Like Illness - HPI Summary HPI Summary: Patient complains of fever up to 102, chest tightness, headache, cough, nasal congestion, facial pressur, body aches, bilateral ear pain, sore throat 3 days. Patient taking ibuprofen and Tylenol for fever control. Last antipyretic at 4 PM is Tylenol. Denies neck stiffness, N/V/D, abdominal pain, change in urine, change in BM. Medical history is asthma, chronic migraines, PTSD. History of gastric bypass November 2017. Patient has inhalers and nebulizers at home which have provided minimal relief. - History of Current Complaint Chief Complaint: EDFluSymptoms Time Seen by Provider: 08/04/18 00:26 Hx Obtained From: Patient Onset/Duration: Gradual Onset, Lasting Days Severity: Moderate Associated Signs & Symptoms: Fever - Allergy/Home Medications Allergies/Adverse Reactions: Allergies Allergy/AdvReac Type Severity Reaction Status Date / Time latex Allergy Unknown Verified 04/03/18 13:48 Reaction Details morphine Allergy Anaphylatic Verified 04/03/18 13:48 Shock quetiapine [From Seroquel] Allergy Agitation Verified 04/03/18 13:48 sertraline [From Zoloft] Allergy Agitation Verified 04/03/18 13:48 sumatriptan [From Imitrex] Allergy Anaphylatic Verified 04/03/18 13:48 Shock PMH/Surg Hx/FS Hx/Imm Hx Endocrine/Hematology History: Denies: Hx Diabetes Cardiovascular History: Denies: Hx Hypertension Respiratory History: Reports: Hx Asthma, Hx Chronic Obstructive Pulmonary Disease (COPD) History: Denies: Hx Dialysis, Hx Renal Disease Sensory History: Denies: Hx Eye Prosthesis, Hx Deafness Opthamlomology History: Denies: Hx Eye Prosthesis Neurological History: Denies: Hx Developmental Delay Psychiatric History: Denies: Hx Autism - Surgical History Surgery Procedure, Year, and Place: HYSTERECTOMY Infectious Disease History: No Infectious Disease History: Denies: Traveled Outside the [place] in Last 30 Days - Social History Alcohol Use: None Hx Substance Use: No Substance Use Type: Reports: None Hx Tobacco Use: Yes Smoking Status (MU): Current Every Day Smoker Review of Systems Positive: Fever Eyes: Negative Positive: Sore Throat, Ear Ache, Nasal Discharge Positive: Chest Pain Positive: Shortness Of Breath, Cough Gastrointestinal: Negative Genitourinary: Negative Positive: Myalgia Skin: Negative Neurological: Negative Psychological: Normal All Other Systems Reviewed And Are Negative: Yes Physical Exam Triage Information Reviewed: Yes Vital Signs On Initial Exam: Initial Vitals Temp Pulse Resp BP Pulse Ox 98.9 F 88 20 153/96 99 08/03/18 21:23 08/03/18 21:23 08/03/18 21:23 08/03/18 21:23 08/03/18 21:23 Vital Signs Reviewed: Yes Appearance: Positive: Well-Appearing Skin: Positive: Warm Head/Face: Positive: Normal Head/Face Inspection Eyes: Positive: Normal ENT: Positive: Pharyngeal erythema, Nasal congestion, TM bulging, Uvula midline. Negative: Tonsillar swelling, Tonsillar exudate, Trismus, Muffled voice, Hoarse voice Neck: Positive: Supple Respiratory/Lung Sounds: Positive: Clear to Auscultation Cardiovascular: Positive: Normal Abdomen Description: Positive: Nontender Musculoskeletal: Positive: Normal Neurological: Positive: Normal Psychiatric: Positive: Normal AVPU Assessment: Alert - Hannah Coma Scale Best Eye Response: 4 - Spontaneous Best Motor Response: 6 - Obeys Commands Best Verbal Response: 5 - Oriented Coma Scale Total: 15 Diagnostics - Vital Signs Vital Signs Temp Pulse Resp BP Pulse Ox 08/04/18 01:33 99.2 F 78 16 117/74 08/04/18 01:05 77 18 100 08/03/18 21:23 98.9 F 88 20 153/96 99 - Laboratory Lab Results: Lab Results 08/04/18 08/04/18 08/04/18 Range/Units 00:35 00:35 00:35 WBC 8.3 (3.5-10.8) 10^3/ul RBC 4.46 (4.00-5.40) 10^6/ul Hgb 13.4 (12.0-16.0) g/dl Hct 40 (35-47) % MCV 90 (80-97) fL MCH 30 (27-31) pg MCHC 34 (31-36) g/dl RDW 13 (10.5-15) % Plt Count 196 (150-450) 10^3/ul MPV 7.8 (7.4-10.4) fL Neut % (Auto) 65.1 % Lymph % (Auto) 24.3 % Brule % (Auto) 8.0 % Eos % (Auto) 1.4 % Baso % (Auto) 1.2 % Absolute Neuts (auto) 5.4 (1.5-7.7) 10^3/ul Absolute Lymphs (auto) 2.0 (1.0-4.8) 10^3/ul Absolute Monos (auto) 0.7 (0-0.8) 10^3/ul Absolute Eos (auto) 0.1 (0-0.6) 10^3/ul Absolute Basos (auto) 0.1 (0-0.2) 10^3/ul Absolute Nucleated RBC 0 10^3/ul Nucleated RBC % 0 INR (Anticoag Therapy) 1.02 (0.77-1.02) Sodium 136 (135-145) mmol/L Potassium 3.7 (3.5-5.0) mmol/L Chloride 105 (101-111) mmol/L Carbon Dioxide 23 (22-32) mmol/L Anion Gap 8 (2-11) mmol/L BUN 11 (6-24) mg/dL Creatinine 0.67 (0.51-0.95) mg/dL Est GFR ( Amer) 118.0 (>60) Est GFR (Non-Af Amer) 97.5 (>60) BUN/Creatinine Ratio 16.4 (8-20) Glucose 86 (70-100) mg/dL Lactic Acid (0.5-2.0) mmol/L Calcium 9.1 (8.6-10.3) mg/dL Total Bilirubin 0.30 (0.2-1.0) mg/dL AST 14 (13-39) U/L ALT 14 (7-52) U/L Alkaline Phosphatase 84 (34-104) U/L Troponin I 0.00 (<0.04) ng/mL Total Protein 6.8 (6.4-8.9) g/dL Albumin 4.3 (3.2-5.2) g/dL Globulin 2.5 (2-4) g/dL Albumin/Globulin Ratio 1.7 (1-3) Urine Color Urine Appearance Urine pH (5-9) Ur Specific Hitchcock (1.010-1.030) Urine Protein (Negative) Urine Ketones (Negative) Urine Blood (Negative) Urine Nitrate (Negative) Urine Bilirubin (Negative) Urine Urobilinogen (Negative) Ur Leukocyte Esterase (Negative) Urine Glucose (Negative) Group A Strep Rapid (Negative) 08/04/18 08/04/18 08/04/18 Range/Units 00:35 01:22 01:31 WBC (3.5-10.8) 10^3/ul RBC (4.00-5.40) 10^6/ul Hgb (12.0-16.0) g/dl Hct (35-47) % MCV (80-97) fL MCH (27-31) pg MCHC (31-36) g/dl RDW (10.5-15) % Plt Count (150-450) 10^3/ul MPV (7.4-10.4) fL Neut % (Auto) % Lymph % (Auto) % Brule % (Auto) % Eos % (Auto) % Baso % (Auto) % Absolute Neuts (auto) (1.5-7.7) 10^3/ul Absolute Lymphs (auto) (1.0-4.8) 10^3/ul Absolute Monos (auto) (0-0.8) 10^3/ul Absolute Eos (auto) (0-0.6) 10^3/ul Absolute Basos (auto) (0-0.2) 10^3/ul Absolute Nucleated RBC 10^3/ul Nucleated RBC % INR (Anticoag Therapy) (0.77-1.02) Sodium (135-145) mmol/L Potassium (3.5-5.0) mmol/L Chloride (101-111) mmol/L Carbon Dioxide (22-32) mmol/L Anion Gap (2-11) mmol/L BUN (6-24) mg/dL Creatinine (0.51-0.95) mg/dL Est GFR ( Amer) (>60) Est GFR (Non-Af Amer) (>60) BUN/Creatinine Ratio (8-20) Glucose (70-100) mg/dL Lactic Acid 0.5 (0.5-2.0) mmol/L Calcium (8.6-10.3) mg/dL Total Bilirubin (0.2-1.0) mg/dL AST (13-39) U/L ALT (7-52) U/L Alkaline Phosphatase (34-104) U/L Troponin I (<0.04) ng/mL Total Protein (6.4-8.9) g/dL Albumin (3.2-5.2) g/dL Globulin (2-4) g/dL Albumin/Globulin Ratio (1-3) Urine Color Yellow Urine Appearance Cloudy Urine pH 6.0 (5-9) Ur Specific Hitchcock 1.019 (1.010-1.030) Urine Protein Negative (Negative) Urine Ketones Trace A (Negative) Urine Blood Negative (Negative) Urine Nitrate Negative (Negative) Urine Bilirubin Negative (Negative) Urine Urobilinogen Positive A (Negative) Ur Leukocyte Esterase Negative (Negative) Urine Glucose Negative (Negative) Group A Strep Rapid Negative (Negative) Result Diagrams: 08/04/18 00:35 08/04/18 00:35 Lab Statement: Any lab studies that have been ordered have been reviewed, and results considered in the medical decision making process. Flu Symptom Course/Dx - Course Course Of Treatment: Patient complains of fever up to 102, chest tightness, headache, cough, nasal congestion, facial pressur, body aches, bilateral ear pain, sore throat 3 days. Patient taking ibuprofen and Tylenol for fever control. Last antipyretic at 4 PM is Tylenol. Denies neck stiffness, N/V/D, abdominal pain, change in urine, change in BM. Medical history is asthma, chronic migraines, PTSD. History of gastric bypass November 2017. Patient has inhalers and nebulizers at home which have provided minimal relief. Physical exam unremarkable. Vital signs within normal limits. Labs unremarkable. Chest x-ray unremarkable. Strep negative. Patient has had symptoms for 3 days so did not test for flu. Patient felt better after 1 L normal saline, migraine cocktail, Tessalon, viscous lidocaine. Rx for viscous lidocaine, Tessalon. Alternate ibuprofen and Tylenol to 3 hours for control of fever, headache and body aches. Patient understands and approves plan - Diagnoses Provider Diagnoses: Viral syndrome Discharge - Sign-Out/Discharge Documenting (check all that apply): Patient Departure Patient Received Moderate/Deep Sedation with Procedure: No - Discharge Plan Condition: Stable Disposition: HOME Prescriptions: Benzonatate CAP* [Tessalon 100 MG CAP*] 200 mg PO TID 6 Days #40 cap Lidocaine 2% VISCOUS* [Xylocaine 2% Viscous*] 15 ml SWISH SPIT Q6H PRN #1 btl PRN Reason: Pain predniSONE TAB* [Deltasone 20 MG TAB*] 40 mg PO DAILY 5 Days #10 tab Patient Education Materials: Viral Syndrome (ED) Forms: *Work Release Referrals: No Primary Care Phys,NOPCP [Primary Care Provider] - Additional Instructions: Alternate ibuprofen 600 mg with Tylenol 650 mg every 3 hours for control of fever, headache and body aches. Take prednisone as directed to control bronchospasm. Take Tessalon as directed for cough if needed. Use lidocaine for sore throat pain as directed if needed. Drink plenty of fluids to maintain hydration. Rest. Follow-up with primary care. Return to the ED for any new or worsening symptoms. - Billing Disposition and Condition Condition: STABLE Disposition: Home
[2018-08-04 02:54] VITALS: BP 122/74
== END 2018-08-04 02:53 | disposition home or self-care (01) ==
LOC: ED 21:11
DX: B34.9 Viral infection, unspecified (principal); J44.9 Chronic obstructive pulmonary disease, unspecified; Z88.5 Allergy status to narcotic agent; Z88.8 Allergy status to other drugs, medicaments and biological substances; Z91.040 Latex allergy status; F17.200 Nicotine dependence, unspecified, uncomplicated
CPT/HCPCS: 36415; 71045; 80053; 81003; 83605; 84484; 85025; 85610; 87651; 96361; 96374; 96375; 99282; A9270-GY; J1200; J2765

== ENCOUNTER 2019-07-01 17:05 | Emergency (ER) | payer BC, MEDICAID, OTHER ==
--- OUTSIDE RECORDS SUMMARY | 2019-07-01 17:19 | XMS REPORT | Summary of Care ---
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 (VITAMAX) 60 MG Oral Chew Tab aripiprazole Take 1 Tab by 30 Tab 0 Active (ABILIFY) 15 MG Oral mouth EVERY 9 Tab BEDTIME. busPIRone (BUSPAR) Take 1 Tab by 90 Tab 0 Active 10 MG Oral Tab mouth THREE 9 TIMES DAILY. duloxetine Take 1 Cap by 30 Cap 0 Active (CYMBALTA) 30 MG mouth DAILY. 9 Oral CAPSULE ENTERIC COATED PARTICLES sorbitol 70 % Oral Take 15 mL by 360 mL 1 Active Solution mouth DAILY. 9 linaCLOtide Take 1 Tab by 30 Cap 0 Active (LINZESS) 290 MCG mouth DAILY. 9 Oral Cap albuterol HFA Take 2 Puffs 1 Inhaler 0 Active (VENTOLIN HFA) 108 by inhalation 9 (90 Base) MCG/ACT EVERY FOUR Inhalation Aero Soln HOURS NEEDED (shortness of breath, cough or wheeze). albuterol (ACCUNEB) 1.25 mg by 0 Active 1.25 MG/3ML Inhalation-SVN Inhalation Nebu Soln route NEEDED. Thiamine HCl Take 1 Tab by 90 Tab 3 Active (VITAMIN B-1) 100 MG mouth DAILY. 9 Oral TabIndications: Thiamine deficiency Omeprazole 40 MG Take 1 Cap by 60 Cap 5 Active Oral CAPSULE DELAYED mouth TWICE 9 RELEASEIndications: DAILY. Gastroesophageal reflux disease, esophagitis presence not specified lamotrigine Take 1 Tab by 60 Tab 0 Active (LAMICTAL) 25 MG mouth 9 Oral Tab DIRECTED. Increase per written directions topiramate (TOPAMAX) Take 1 Tab by 120 Tab 3 Active 25 MG Oral Tab mouth 9 DIRECTED. 50 Mg in AM, 50 afternoon, 100 Mg at bedtime. Topiramate 50 MG Take 2 Tabs by 60 Tab 0 Active Oral Tab mouth EVERY 9 BEDTIME. levetiracetam Take 1 Tab by 60 Tab 0 05/25/20 Discontinued (KEPPRA) 500 MG Oral mouth TWICE 02 11 (Therapy TabIndications: DAILY. Completed) History of seizure topiramate (TOPAMAX) Take 1 Tab by 30 Tab 0 05/25/20 Discontinued 100 MG Oral mouth EVERY 02 11 (Clarification TabIndications: EVENING. of Order) History of seizure naproxen (NAPROSYN) Take 1 Tab by 30 Tab 0 05/25/20 Discontinued 500 MG Oral Tab mouth DAILY 02 11 (Therapy NEEDED (pain). Completed) predniSONE Take 1 Tab by 5 Tab 0 05/25/20 Discontinued (DELTASONE) 20 MG mouth DAILY. 9 (Therapy Oral TabIndications: Completed) Mild asthma exacerbation amoxicillin-clavulan Take 1 Tab by 14 Tab 0 05/25/20 Discontinued ic acid (AUGMENTIN) mouth TWICE 02 11 (Alternative 875-125 MG Oral DAILY. Therapy) TabIndications: Acute sinusitis, recurrence not specified, unspecified location topiramate (TOPAMAX) Take 1 Tab by 120 Tab 3 05/25/20 Discontinued 25 MG Oral mouth 02 11 (Clarification TabIndications: DIRECTED. 1 of Order) History of seizure tab in Am and 1 tab in afternoon documented as of this encounter (statuses as of 05/25/2019) Active Problems Problem Noted Date Seizure Anxiety and depression Chronic migraine documented as of this encounter (statuses as of 05/25/2019) Resolved Problems Problem Noted Date Resolved Date Type 2 diabetes mellitus 04/01/2019 documented as of this encounter (statuses as of 05/25/2019) Immunizations Name Administration Dates Next Due Influenza (IM) Preservative Free 02/05/2019 documented as of this encounter Social History Tobacco Use Types Packs/Day Years Used Date Current Every Day Smoker 0.5 Smokeless Tobacco: Never Used Alcohol Use Drinks/Week oz/Week Comments Yes rare Sex Assigned at Date Recorded Not on file Job Start Date Occupation Industry Not on file Not on file Not on file Travel History Travel Start Travel End No recent travel history available. documented as of this encounter Last Filed Vital Signs Vital Sign Reading Time Taken Comments Blood Pressure - - Pulse - - Temperature - - Respiratory Rate - - Oxygen Saturation - - Inhaled Oxygen Concentration - - Weight 67.6 kg (149 lb) 05/25/2019 9:08 AM EST Height 165.1 cm (5' 5") 05/25/2019 9:08 AM EST Body Mass Index 24.79 05/25/2019 9:08 AM EST documented in this encounter Patient Instructions Patient InstructionsScott Cadet CRNP - 05/25/2019 9:40 AM ESTWe will add Lamictal as follows (you will receive 25 mg tablets) Week 1: one half tablet daily Week 2: one full tablet daily Week 3: one full tablet twice a day Week 4: one tablet in morning, two tablets at night Week 5: two tablets twice a day every day Call us and stop the Lamictal (lamotrigine) immediately should you develop any kind of rash. We will do a blood draw at your next visit. Follow up here in neurology in six weeks with JOSEMANUEL Irizarry CRNP documented in this encounter Progress Notes Scott Cadet CRNP - 05/25/2019 9:40 AM EST PATIENT: Marquita Sharma : 1980 DATE OF SERVICE: 05/25/2019 REFERRING PRACTITIONER: Aleks Lerma PRIMARY CARE PROVIDER: Regina Potter CHIEF COMPLAINT: Chief Complaint Patient presents with Neurologic Problem HISTORY OF PRESENT ILLNESS: Marquita Sharma is a 39-y.o. female who presents for a consultation on seizures. The spells began aftershe had her gastric bypass. She was dehydrated for a long time and malnourished. She did not follow the diet that was recommended, she ate Popciles for 6 months. The bypass was done due to uncontrolleddiabetes, was on an insulin pump, after the bypass was done the diabetes went away. Bypass done 2015. Then spells began about 8 months after surgery. Got up and was making coffee, felt nauseous and lightheadedness. Went down face forward, was shaking, eyes rolling, foaming at the mouth. Back was arched, apparently had some tonic clonic activity, gasping for breath. Had urinary loss, no bowel loss, didnot bite or cheek. Was confused, "out of it," was amnesic to the event. Wanted to sleep for an extended period of time, had a lot of neck pain. Had some pain where she struck when she fell. Second spell was a week later. Was standing, was doing a belly button piercing at that time. She did lose bladder control, did not bite tongue or cheek. Was very post ictal. Was amnesic to that event. Vomited after both events, as well always has a metallic taste in the mouth post spell. Next spell was three months later. Was playing on the floor with cats, had a staring spell. Last spell was January 2018. [place] as the third spell. Saw neurology near [facility]. Was told it was tension in the neck. Saw another neurologist in [facility]. They felt there that it was due to medication. She went off some meds, but spells persisted but "I haven't had a bad one since 2017." If her talks to her when the shaking of the eyes starts, her talks to her the symptoms will resolve. Was started on Keppra (levetiracetam) at some point, did not decrease the spells. As well was on Topamax (topiramate) at the time. Went off the Keppra ( levetiracetam) on her own. Apparently was on Topamax (topiramate) for migraines. Started the Keppra (levetiracetam) in January 2018 but it made her exhausted so that is when she went off it. Reports she had a normal EEG (brain wave study). She has had a complete hysterectomy. She has suffered from chronic migraines for years. Obviously the Topamax ( topiramate) is not helpingto control the migraines. Past Medical History: Diagnosis Date Anxiety and depression Migraine VONDA (obstructive sleep apnea) Pulmonary embolism (HCC) 2016 after sprained ankle immobility + depot + obese at that time Seizure (HCC) Type 2 diabetes mellitus (HCC) Past Surgical History: Procedure Laterality Date CARPAL TUNNEL RELEASE CHOLECYSTECTOMY HIGH GASTRIC BYPASS 2017 [place] REPAIR INCISIONAL HERNIA,REDUCIBLE 12/03/2018 [place] REPAIR SLIDING INGUINAL HERNIA TOTAL ABD HYSTERECTOMY No family history on file. Current Outpatient Medications Medication Sig albuterol (ACCUNEB) 1.25 MG/3ML Inhalation Nebu Soln 1.25 mg by Inhalation-SVN route NEEDED. albuterol HFA (VENTOLIN HFA) 108 (90 Base) MCG/ACT Inhalation Aero Soln Take 2 Puffs by inhalation EVERY FOUR HOURS NEEDED (shortness of breath, cough or wheeze). aripiprazole (ABILIFY) 15 MG Oral Tab Take 1 Tab by mouth EVERY BEDTIME. busPIRone (BUSPAR) 10 MG Oral Tab Take 1 Tab by mouth THREE TIMES DAILY. duloxetine (CYMBALTA) 30 MG Oral CAPSULE ENTERIC COATED PARTICLES Take 1 Cap by mouth DAILY. lamotrigine (LAMICTAL) 25 MG Oral Tab Take 1 Tab by mouth DIRECTED. Increase per written directions linaCLOtide (LINZESS) 290 MCG Oral Cap Take 1 Tab by mouth DAILY. Omeprazole 40 MG Oral CAPSULE DELAYED RELEASE Take 1 Cap by mouth TWICE DAILY. Pediatric Bjeictfi-Npltxsrw-P (VITAMAX) 60 MG Oral Chew Tab Take by mouth. sorbitol 70 % Oral Solution Take 15 mL by mouth DAILY. Thiamine HCl (VITAMIN B-1) 100 MG Oral Tab Take 1 Tab by mouth DAILY. topiramate (TOPAMAX) 25 MG Oral Tab Take 1 Tab by mouth DIRECTED. 50 Mg in AM, 50 afternoon, 100 Mg at bedtime. Topiramate 50 MG Oral Tab Take 2 Tabs by mouth EVERY BEDTIME. No current facility-administered medications for this visit. Allergies Allergen Reactions Bee Anaphylaxis Latex Respiratory Reaction Morphine HYDRO OPERATOR Reaction Prozac [Fd&C Blue #1-Fd&C Yellow #6-Fluoxetine] Other Reverse effect Zoloft Other Reverse effects Social History Socioeconomic History Marital status: Spouse name: Not on file Number of children: Not on file Years of education: Not on file Highest education level: Not on file Occupational History Not on file Social Needs Financial resource strain: Not on file Food insecurity Worry: Not on file Inability: Not on file Transportation needs Medical: Not on file Non-medical: Not on file Tobacco Use Smoking status: Current Every Day Smoker Packs/day: 0.50 Smokeless tobacco: Never Used Substance and Sexual Activity Alcohol use: Yes Comment: rare Drug use: Not Currently Sexual activity: Not on file Lifestyle Physical activity Days per week: Not on file Minutes per session: Not on file Stress: Not on file Relationships Social connections Talks on phone: Not on file Gets together: Not on file Attends orthodox service: Not on file Active member of club or organization: Not on file Attends meetings of clubs or organizations: Not on file Relationship status: Not on file Intimate partner violence Fear of current or ex partner: Not on file Emotionally abused: Not on file Physically abused: Not on file Forced sexual activity: Not on file Other Topics Concern Not on file Social History Narrative Not on file REVIEW OF SYSTEMS: A comprehensive review of systems was negative except for as noted in the history of present illness/subjective. PHYSICAL EXAMINATION: Ht 5' 5" (1.651 m) | Wt 149 lb (67.6 kg) | BMI 24.79 kg/m Body mass index is 24.79 kg/m. GENERAL: alert, oriented, no acute distress, appears stated age. She and her are excellent historians. SKIN: normal, no rashes or abnormalities noted. HEENT: sclera normal, anicteric, mucous membrane moist, conjunctiva pink and pale, normal dentition, pupils equal, round, reactive to light, extraocular movement intact and normal dentition, tongue midline . NEUROLOGICAL: Cranial nerves: unremarkable. Sensory: normal to pain, touch, vibration and position sensation in upper and lower bilateral extremities Motor: 5/5 in all major muscle groups. Reflexes: 2+ and symmetric Coordination: normal Gait and station: normal. 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 She did not do well on Keppra (levetiracetam). She has not had a significant spell for over a year. As the Topamax (topiramate) is not controlling her migraines I suspect we will be taking her off that in the future so will need to add an AED. Will start a slowly ramping dose of Lamictal (lamotrigine). They were given written instructions on how do achieve this. She as well was instructed that should she develop any type of rash after starting the Lamictal ( lamotrigine) she should discontinue that immediately and contact our office. I suspect she will not be therapeutic at 50 Mg BID and we will need to increase the dose This has been fully explained to the patient, who indicates understanding. All their questions were answered to their satisfaction. She will return for follow up in six weeks with JOSEMANUEL Irizarry as I will be out of the office for an extended period of time. Author: GÉNESIS Rodriges 05/25/2019 12:25 documented in this encounter Plan of Treatment Date Type Specialty Care Team Description 07/06/2019 Office Visit Neurology Melinda Mar PA-C [facility] [place] [id number] [phone] 07/13/2019 Office Visit Family Practice Kateryna Potterzabeth, EXPLOSIVE OPERATOR SUPERVISOR [address] [place] [address] [phone] Health Maintenance Due Date Last Done Comments Diabetic Eye Exam 1980 MEDICARE ANNUAL WELLNESS VISIT 1980 PNEUMOCOCCAL 0-64 YRS (1 of 1 02/10/1984 - PPSV23) DTaP/Tdap/Td Vaccines (1 - 1989 Tdap) HIV SCREENING 1993 FOOT EXAM 02/10/1996 PAP SMEAR 1999 MAMMOGRAM (SCREENING) 2018 HEMOGLOBIN A1C 10/04/2019 04/05/2019, 01/05/2019 DEPRESSION SCREENING 01/06/2020 01/05/2019, 01/05/2019 LIPID DISORDER SCREENING 01/06/2020 01/05/2019 URINE MICROALBUMIN 01/06/2020 01/05/2019 INFLUENZA VACCINE Completed 02/05/2019 HEPATITIS A IMMUNIZATION Aged Out No longer eligible based SERIES on patient's age to complete this topic HPV IMMUNIZATION SERIES Aged Out No longer eligible based on patient's age to complete this topic MENINGOCOCCAL VACCINE IMM Aged Out No longer eligible based on patient's age to complete this topic documented as of this encounter Goals Goal Patient Goal Associated Recent Patient-Stated? Author Type Problems Progress Depression Depression 19 No Aleks Lerma screen (PHQ-9) (01/05/2019 DO Ruben total score < 5 2:13 PM EDT) Note: This is an individualized treatment (depression) goal for Marquita Sharma: Displayed above is your goal for a depression screening (PHQ-9) score that would indicate good control of your depression. Glycohemoglobin A1c < 7.0 Diabetes 5.8 (04/05/2019 8:21 AM No Aleks Lerma DO EST) Note: This is an individualized treatment (diabetes control, HgbA1C) goal for Marquita Sharma: Displayed above is your progress towards your HgbA1C goal. Your goal is shown above (on the left); your most recent HgbA1C is shown on the right. Note that lower numbers are better. Keep a regular sleep schedule Lifestyle No Aleks Lerma DO Note: This is an individualized lifestyle goal for Marquita Sharma: Please maintain a regular sleep schedule. This may help with some symptoms of depression. Keep immunizations current Lifestyle No Aleks Lerma, DO Note: This is an individualized lifestyle goal for Marquita Sharma: Please be sure to keep up-to-date on recommended immunizations. For example, this would include a yearly influenza vaccine. Immunization status can be seen by looking at the Health Maintenance sections of your [facility], Plan of Care, and any After Visit Summaries. Take all prescribed medications as directed Self-management No Aleks Lerma, DO Note: This is an individualized self-management goal for Marquita Sharma: Please take all prescribed medications as directed. 1. Do not skip doses. If you cannot afford your medications, talk with your doctor. 2. Use a pill reminder system such as a pill box if needed. Your pharmacist can help you with this. 3. Contact your Pharmacy 5 days before your medication runs out. If you cannot take your medications for any reasons, talk with your doctor. 4. Please bring all of your medication bottles and inhalers (or a list of all your medications/inhalers) with you to every visit. Potential barriers to meeting all of your care plan goals will continue to be addressed on an ongoing basis. documented as of this encounter Results Not on filedocumented in this encounter Visit Diagnoses Diagnosis Seizure (HCC) Other convulsions Chronic migraine Chronic migraine without aura, without mention of intractable migraine without mention of status migrainosus documented in this encounter Insurance Payer Benefit Plan / Subscriber ID Effective Dates Phone Address Type Group [employer] xxxxxxxxxxxx 2018-Present [employer] MEDIC[employer] BLUE PPO ([phone]) documented as of this encounter
[2019-07-01] MEDS ORDERED: Cyclobenzaprine TAB* 10 MG PO ONE (18:10)
[2019-07-01 18:13] LABS: ABS Basophils 0.1 10^3/ul (0-0.2); ABS Lymphocytes 2.4 10^3/ul (1.0-4.8); ABS Monocytes 0.6 10^3/ul (0-0.8); Eosinophil % 0.5 %; Hematocrit 38 % (35-47); Hemoglobin 13.5 g/dL (12.0-16.0); Lymphocyte % 26.4 %; Mean Corpuscular HGB Conc 35 g/dL (31-36); Mean Corpuscular Hemoglobin 32 pg (27-31); Mean Corpuscular Volume 91 fL (80-97); Mean Platelet Volume 7.3 fL (7.4-10.4); Platelet Count 237 10^3/uL (150-450); Red Blood Count 4.22 10^6 /uL (3.70-4.87); Red Cell Distribution Width 13 % (10-15); White Blood Count 9.1 10^3/uL (3.5-10.8)
[2019-07-01 18:21] LABS: INR 1.08 (0.82-1.09)
[2019-07-01 18:30] LABS: ALT 16 U/L (7-52); AST 21 U/L (13-39); Albumin 4.1 g/dL (3.2-5.2); Albumin/Globulin Ratio 1.7 (1-3); Alkaline Phosphatase 73 U/L (34-104); Anion Gap 5 mmol/L (2-11); BUN/Creatinine Ratio 15.5 (8-20); Blood Urea Nitrogen 11 mg/dL (6-24); C Reactive Protein < 1.00 mg/L (<8.01); CO2 Carbon Dioxide 25 mmol/L (22-32); Calcium 8.9 mg/dL (8.6-10.3); Chloride 107 mmol/L (101-111); EGFR African American 109.8 (>60); EGFR Non-African American 90.7 (>60); Globulin 2.4 g/dL (2-4); Glucose 83 mg/dL (70-100); Potassium 3.8 mmol/L (3.5-5.0); Sodium 137 mmol/L (135-145); Total Protein 6.5 g/dL (6.4-8.9)
--- NOTE | 2019-07-01 19:06 | ED ---
Lower Extremity - HPI Summary HPI Summary: 39-year-old male presents bilaterally leg pain for the past week. She states that she has been having cramping of the legs. It is worse at night. She states she has developed bruising to the area. Area has been swelling. She has a history of DVTs. Has never had this before. Is not currently on blood thinners. Denies any chest pressure or shortness of breath. She denies any recent travel. she denies any back pain. no urinary symptoms. no loss of bowel or bladder. - History of Current Complaint Chief Complaint: EDExtremityLower Stated Complaint: LEG PAIN PER PT Time Seen by Provider: 07/01/19 17:36 Pain Intensity: 8 - Allergies/Home Medications Allergies/Adverse Reactions: Allergies Allergy/AdvReac Type Severity Reaction Status Date / Time bee venom protein (honey bee) Allergy Anaphylatic Verified 07/01/19 17:11 Shock fluoxetine [From Prozac] Allergy Anxiety Verified 07/01/19 17:11 latex Allergy Unknown Verified 04/03/18 13:48 Reaction Details morphine Allergy Anaphylatic Verified 04/03/18 13:48 Shock quetiapine [From Seroquel] Allergy Agitation Verified 04/03/18 13:48 sertraline [From Zoloft] Allergy Agitation Verified 04/03/18 13:48 sumatriptan [From Imitrex] Allergy Anaphylatic Verified 04/03/18 13:48 Shock Home Medications: Home Medications Multivitamin [Multivitamins] 1 cap PO 07/01/19 [History] Omeprazole 1 tab PO TID 07/01/19 [History Confirmed 07/01/19] Topiramate TAB(*) [Topamax 25 MG tab] 200 mg PO DAILY 07/01/19 [History Confirmed 07/01/19] Vitamin B Complex CAP* [B Complex CAP*] 1 cap PO DAILY 07/01/19 [History Confirmed 07/01/19] lamoTRIgine [Lamotrigine] 50 mg PO BID 07/01/19 [History Confirmed 07/01/19] PMH/Surg Hx/FS Hx/Imm Hx Endocrine/Hematology History: Denies: Hx Diabetes Cardiovascular History: Reports: Hx Deep Vein Thrombosis Denies: Hx Hypertension Respiratory History: Reports: Hx Asthma, Hx Chronic Obstructive Pulmonary Disease (COPD) History: Denies: Hx Dialysis, Hx Renal Disease Sensory History: Denies: Hx Eye Prosthesis, Hx Deafness Opthamlomology History: Denies: Hx Eye Prosthesis Neurological History: Denies: Hx Developmental Delay Psychiatric History: Denies: Hx Autism - Surgical History Surgery Procedure, Year, and Place: HYSTERECTOMY Infectious Disease History: No Infectious Disease History: Denies: Traveled Outside the [place] in Last 30 Days - Family History Known Family History: Positive: Unknown - adopted - Social History Alcohol Use: None Hx Substance Use: No Substance Use Type: Reports: None Hx Tobacco Use: Yes Smoking Status (MU): Light Every Day Tobacco Smoker Review of Systems Negative: Fever Negative: Chest Pain Negative: Shortness Of Breath Positive: Myalgia - bilateral calf Positive: Bruising All Other Systems Reviewed And Are Negative: Yes Physical Exam Triage Information Reviewed: Yes Vital Signs On Initial Exam: Initial Vitals Temp Pulse Resp BP Pulse Ox 97.2 F 81 18 139/100 100 07/01/19 17:08 07/01/19 17:08 07/01/19 17:08 07/01/19 17:08 07/01/19 17:08 Vital Signs Reviewed: Yes Appearance: Positive: Well-Appearing Skin: Positive: Warm, Dry Head/Face: Positive: Normal Head/Face Inspection Eyes: Positive: Normal, Conjunctiva Clear ENT: Positive: Pharynx normal Respiratory/Lung Sounds: Positive: Clear to Auscultation, Breath Sounds Present Cardiovascular: Positive: Normal, RRR Musculoskeletal: Positive: Strength/ROM Intact - legs, Other - good pulses, bruising noted to bilateral legs, mild edema noted, tenderness bilateral calf Neurological: Positive: Normal Psychiatric: Positive: Normal Procedures - Sedation Patient Received Moderate/Deep Sedation with Procedure: No Diagnostics - Vital Signs Vital Signs Temp Pulse Resp BP Pulse Ox 07/01/19 17:08 97.2 F 81 18 139/100 100 - Laboratory Lab Results: Lab Results 07/01/19 07/01/19 07/01/19 Range/Units 18:06 18:06 18:06 WBC 9.1 (3.5-10.8) 10^3/uL RBC 4.22 (3.70-4.87) 10^6 /uL Hgb 13.5 (12.0-16.0) g/dL Hct 38 (35-47) % MCV 91 (80-97) fL MCH 32 H (27-31) pg MCHC 35 (31-36) g/dL RDW 13 (10-15) % Plt Count 237 (150-450) 10^3/uL MPV 7.3 L (7.4-10.4) fL Neut % (Auto) 65.5 % Lymph % (Auto) 26.4 % [place] % (Auto) 6.5 % Eos % (Auto) 0.5 % Baso % (Auto) 1.1 % Absolute Neuts (auto) 6.0 (1.5-7.7) 10^3/ul Absolute Lymphs (auto) 2.4 (1.0-4.8) 10^3/ul Absolute Monos (auto) 0.6 (0-0.8) 10^3/ul Absolute Eos (auto) 0.0 (0-0.6) 10^3/ul Absolute Basos (auto) 0.1 (0-0.2) 10^3/ul Absolute Nucleated RBC 0.0 10^3/ul Nucleated RBC % 0.0 INR (Anticoag Therapy) 1.08 (0.82-1.09) Sodium 137 (135-145) mmol/L Potassium 3.8 (3.5-5.0) mmol/L Chloride 107 (101-111) mmol/L Carbon Dioxide 25 (22-32) mmol/L Anion Gap 5 (2-11) mmol/L BUN 11 (6-24) mg/dL Creatinine 0.71 (0.51-0.95) mg/dL Est GFR ( Amer) 109.8 (>60) Est GFR (Non-Af Amer) 90.7 (>60) BUN/Creatinine Ratio 15.5 (8-20) Glucose 83 (70-100) mg/dL Calcium 8.9 (8.6-10.3) mg/dL Magnesium 2.0 (1.9-2.7) mg/dL Total Bilirubin 0.60 (0.2-1.0) mg/dL AST 21 (13-39) U/L ALT 16 (7-52) U/L Alkaline Phosphatase 73 (34-104) U/L C-Reactive Protein < 1.00 (<8.01) mg/L Total Protein 6.5 (6.4-8.9) g/dL Albumin 4.1 (3.2-5.2) g/dL Globulin 2.4 (2-4) g/dL Albumin/Globulin Ratio 1.7 (1-3) Result Diagrams: 07/01/19 18:06 07/01/19 18:06 Lab Statement: Any lab studies that have been ordered have been reviewed, and results considered in the medical decision making process. - Ultrasound No standard instances Ultrasound Interpretation Completed By: Radiologist Summary of Ultrasound Findings: IMPRESSION: No evidence of DVT in the right or the left leg. Re-Evaluation - Re-Evaluation First Eval Re-Evaluation Time: 20:12 Change: Unchanged Comment: symptoms same after flexeril. Lower Extremity Course/Dx - Course Course Of Treatment: 39-year-old male presents bilaterally leg pain for the past week. She states that she has been having cramping of the legs. It is worse at night. She states she has developed bruising to the area. Area has been swelling. She has a history of DVTs. Has never had this before. Is not currently on blood thinners. Denies any chest pressure or shortness of breath. She denies any recent travel. On exam has edema noted to bilateral legs. bruising to [place]. tenderness bilateral calfs. White blood count normal. h/h normal. electrolytes normal. Ultrasound shows no dvt. no improvement with muscle relaxers. told follow up with primary. patient understand and agrees with plan. - Diagnoses Differential Diagnosis/HQI/PQRI: Positive: DVT, Sprain, Strain, Other - metabolic disorder Provider Diagnoses: Bilateral leg cramps Discharge ED - Sign-Out/Discharge Documenting (check all that apply): Patient Departure - Discharge Plan Condition: Good Disposition: HOME Patient Education Materials: Leg Cramps (ED) Referrals: Regina Potter NP [Primary Care Provider] - Additional Instructions: drink plenty of fluids stretch legs follow up with primary within 5 days Return to ED if develop any new or worsening symptoms - Billing Disposition and Condition Condition: GOOD Disposition: Home
[2019-07-01] MEDS ORDERED: Ketorolac INJ* 30 MG/ML 1 ML VIAL IM ONE (20:12)
[2019-07-01 20:58] VITALS: BP 109/62
== END 2019-07-01 20:57 | disposition home or self-care (01) ==
LOC: ED 17:05
DX: R25.2 Cramp and spasm (principal); J44.9 Chronic obstructive pulmonary disease, unspecified; F17.200 Nicotine dependence, unspecified, uncomplicated; Z86.718 Personal history of other venous thrombosis and embolism; Z90.710 Acquired absence of both cervix and uterus; Z79.899 Other long term (current) drug therapy; Z88.5 Allergy status to narcotic agent; Z88.8 Allergy status to other drugs, medicaments and biological substances; Z91.040 Latex allergy status
CPT/HCPCS: 36415; 80053; 83735; 85025; 85610; 86140; 93970; 96372; 99282; A9270-GY; J1885

== ENCOUNTER 2019-07-12 03:30 | Emergency (ER) | payer OTHER ==
[2019-07-12] MEDS ORDERED: Phenazopyridine TAB* 100 MG PO ONE (03:53)
[2019-07-12 03:55] LABS: Urine Appearance Cloudy; Urine Bilirubin Negative (Negative); Urine Blood 2+ (Negative); Urine Color Yellow; Urine Glucose Negative (Negative); Urine Ketones Negative (Negative); Urine Nitrite Negative (Negative); Urine Protein 1+(30 mg/dL) (Negative); Urine Specific Gravity 1.024 (1.010-1.030); Urine Urobilinogen Negative (Negative)
--- NOTE | 2019-07-12 03:59 | ED ---
GI/ HPI - HPI Summary HPI Summary: This pt is a 39 Y/O F presenting to [facility] with a CC of a potential UTI that started on 07/09/2019. She states that the pain worsened this night to a 9/10 in severity. She states that has nausea, migraines, dysuria, and pain radiating into her back from her pubic region. She states that she has no aggravating factors. She states that she has been taking APAP for the pain and drinking cranberry juice. She has a PMHx of Szs and is unsure if she has had a fever or chills. She states that she has had a hysterectomy. - History of Current Complaint Chief Complaint: EDUrogenitalProblems Time Seen by Provider: 07/12/19 03:54 Stated Complaint: POS UTI PER PT Hx Obtained From: Patient Onset/Duration: Started Days Ago - 3, Still Present, Worse Since - tonight Timing: Constant, Lasting Days - 3 Severity: Moderate Current Severity: Severe Pain Intensity: 9 Location of Pain: Groin, Other - radiates to back Additional Location for Females: Uterus Pain Radiates to: Back Associated Signs and Symptoms: Positive: Back Pain, Nausea, Dysuria, Other: - POSITIVE: migraines Aggravating Factor(s): Nothing Alleviating Factor(s): Medication - APAP - Allergy/Home Medications Allergies/Adverse Reactions: Allergies Allergy/AdvReac Type Severity Reaction Status Date / Time bee venom protein (honey bee) Allergy Anaphylatic Verified 07/12/19 03:33 Shock fluoxetine [From Prozac] Allergy Anxiety Verified 07/12/19 03:33 latex Allergy Unknown Verified 07/12/19 03:33 Reaction Details morphine Allergy Anaphylatic Verified 07/12/19 03:33 Shock quetiapine [From Seroquel] Allergy Agitation Verified 07/12/19 03:33 sertraline [From Zoloft] Allergy Agitation Verified 07/12/19 03:33 sumatriptan [From Imitrex] Allergy Anaphylatic Verified 07/12/19 03:33 Shock Home Medications: Home Medications Mirtazapine TAB* [Remeron TAB*] 1 tab PO QPM 07/12/19 [History Confirmed ] PMH/Surg Hx/FS Hx/Imm Hx Previously Healthy: Yes Endocrine/Hematology History: Denies: Hx Diabetes Cardiovascular History: Reports: Hx Deep Vein Thrombosis Denies: Hx Hypertension Respiratory History: Reports: Hx Asthma, Hx Chronic Obstructive Pulmonary Disease (COPD) History: Denies: Hx Dialysis, Hx Renal Disease Sensory History: Denies: Hx Eye Prosthesis, Hx Deafness Opthamlomology History: Denies: Hx Eye Prosthesis Neurological History: Denies: Hx Developmental Delay Psychiatric History: Denies: Hx Autism - Cancer History Hx Chemotherapy: No Hx Radiation Therapy: No - Surgical History Surgical History: Yes Surgery Procedure, Year, and Place: HYSTERECTOMY - Immunization History Immunizations Up to Date: Yes Infectious Disease History: No Infectious Disease History: Denies: Traveled Outside the [place] in Last 30 Days - Family History Known Family History: Positive: Unknown - adopted - Social History Occupation: Employed Full-time Lives: With Family Alcohol Use: None Hx Substance Use: No Substance Use Type: Reports: None Hx Tobacco Use: Yes Smoking Status (MU): Light Every Day Tobacco Smoker Review of Systems Negative: Fever, Chills Positive: Abdominal Pain - groin, Nausea Positive: dysuria Positive: Other - pain radiates to back Positive: Headache - migraine All Other Systems Reviewed And Are Negative: Yes Physical Exam - Summary Physical Exam Summary: Constitutional: Well-developed, Well-nourished, Alert. (-) Distressed Skin: Warm, Dry HENT: Normocephalic; Atraumatic Eyes: Conjunctiva normal Neck: Musculoskeletal ROM normal neck. (-) JVD, (-) Stridor, (-) Tracheal deviation Cardio: Rhythm regular, rate normal, Heart sounds normal; Intact distal pulses; The pedal pulses are 2+ and symmetric. Radial pulses are 2+ and symmetric. (-) Murmur Pulmonary/Chest wall: Effort normal. (-) Respiratory distress, (-) Wheezes, (-) Rales Abd: Soft, Mild L CVA tenderness, (-) Distension, (-) Guarding, (-) Rebound Musculoskeletal: (-) Edema Lymph: (-) Cervical adenopathy Neuro: Alert, Oriented x3 Psych: Mood and affect Normal Triage Information Reviewed: Yes Vital Signs On Initial Exam: Initial Vitals Temp Pulse Resp BP Pulse Ox 97.4 F 83 15 133/95 100 07/12/19 03:31 07/12/19 03:31 07/12/19 03:31 07/12/19 03:31 07/12/19 03:31 Vital Signs Reviewed: Yes Procedures - Sedation Patient Received Moderate/Deep Sedation with Procedure: No Diagnostics - Vital Signs Vital Signs Temp Pulse Resp BP Pulse Ox 07/12/19 03:31 97.4 F 83 15 133/95 100 - Laboratory Lab Statement: Any lab studies that have been ordered have been reviewed, and results considered in the medical decision making process. GIGU Course/Dx - Course Course Of Treatment: This pt is a 39 Y/O F presenting to [facility] with a CC of a potential UTI. She states that the pain worsened this night. She states that has nausea, migraines, dysuria, and pain radiating into her back from her groin. She states that she has no aggravating factors. She states that she has been taking APAP for the pain and drinking cranberry juice. Her PE found that she has CVA tenderness. Her Labratory findings are consistent with a UTI. She will be discharged home with a Dx of a UTI. - Diagnoses Provider Diagnoses: UTI (urinary tract infection) Discharge ED - Sign-Out/Discharge Documenting (check all that apply): Patient Departure - discharge - Discharge Plan Condition: Good Disposition: HOME Prescriptions: Nitrofurantoin Monohyd/M-Cryst [Macrobid 100 mg Capsule] 100 mg PO BID #14 cap Phenazopyridine 200 mg (NF) [Pyridium 200 MG tab *] 200 mg PO TID #10 tab Patient Education Materials: Urinary Tract Infection in Women (ED) Forms: *Work Release Referrals: Regina Potter, POND TENDER [Primary Care Provider] - 2 Days (if not improving) Additional Instructions: PLEASE FOLLOW UP WITH YOUR PRIMARY CARE PROVIDER IN 1-3 DAYS AND RETURN TO THE EMERGENCY DEPARTMENT FOR ANY NEW OR WORSENING SYMPTOMS. - Billing Disposition and Condition Condition: GOOD Disposition: Home - Attestation Statements Document Initiated by Geno: Yes Documenting Scribe: Gerson Rey Provider For Whom Geno is Documenting (Include Credential): Amrik Guillory MD Scribe Attestation: Gerson Carrera, debed for Amrik Guillory MD on 07/12/19 at 1939. Scribe Documentation Reviewed: Yes Provider Attestation: The documentation as recorded by the Gerson mckinney accurately reflects the service I personally performed and the decisions made by me, Amrik Guillory MD Status of Scribe Document: Viewed
[2019-07-12] MEDS ORDERED: Nitrofurantoin Macrocrystals* 100 MG CAP PO ONE (04:10)
--- OUTSIDE RECORDS SUMMARY | 2019-07-12 04:17 | XMS REPORT | Summary of Care ---
:1980 Author Organization [facility] Address [address] [place] [address] Care Team Providers Name Role Phone Regina Potter Primary Care Provider Reason for Referral Refer to Department Only (Routine) Status Reason Specialty Diagnoses / Referred By Referred To Procedures Contact Contact Pending Review Gastroenterology Diagnoses Weight loss, unintentional Yenifer Potter NP Gastroenterolo [address] [place] [place] [address] [address] [place], [place] Phone: [phone] Phone: Scheduling Instructions BP 118/64 (BP Location: Left arm, Patient Position: Sitting) | Pulse 91 | Temp 97.2 F (36.2 C) (Tympanic) | Ht 5' 5" (1.651 m) | Wt 138 lb (62.6 kg) | SpO2 99% | BMI 22.96 kg/m BMI Readings from Last 4 Encounters: 07/06/19 : 22.96 kg/m 05/25/19 : 24.79 kg/m 04/09/19 : 25.26 kg/m 04/01/19 : 25.19 kg/m Controlled Substance Medications: Anticoagulant Medications: Psychiatric/Antianxiety Medications: aripiprazole, busPIRone, and duloxetine Antiretroviral Medications: Reason for Visit Reason Comments Check Up alex horses in both legs x1 month, constant, also having more seizures then before Encounter Details Date Type Department Care Team Description 07/06/2019 Office Visit Yenifer Potter Weight loss, unintentional ( Primary Dx); Practice BRIGITTE Tapia Bilateral leg cramps [address] [place] [address] [place] [address] [phone] Allergies Active Allergy Reactions Severity Noted Date Comments Bee Anaphylaxis 01/05/2019 Latex Respiratory Reaction 01/05/2019 Morphine CRYSTAL GAZER Reaction 01/05/2019 Fd&C Blue #1-Fd&C Yellow Other 01/05/2019 Reverse effect #6-Fluoxetine Zoloft Other 01/05/2019 Reverse effects documented as of this encounter (statuses as of 07/06/2019) Medications Medication Sig Dispensed Refills Start Date End Date Status Pediatric Take by mouth. 0 Active Bjqyywey-Xfxqdqwz-J (VITAMAX) 60 MG Oral Chew Tab aripiprazole (ABILIFY) Take 1 Tab by 30 Tab 0 01/05/2019 Active 15 MG Oral Tab mouth EVERY BEDTIME. busPIRone (BUSPAR) 10 Take 1 Tab by 90 Tab 0 01/05/2019 Active MG Oral Tab mouth THREE TIMES DAILY. duloxetine (CYMBALTA) Take 1 Cap by 30 Cap 0 01/05/2019 Active 30 MG Oral CAPSULE mouth DAILY. ENTERIC COATED PARTICLES sorbitol 70 % Oral Take 15 mL by 360 mL 1 01/14/2019 Active Solution mouth DAILY. linaCLOtide (LINZESS) Take 1 Tab by 30 Cap 0 01/14/2019 Active 290 MCG Oral Cap mouth DAILY. albuterol HFA (VENTOLIN Take 2 Puffs by 1 Inhaler 0 01/27/2019 Active HFA) 108 (90 Base) inhalation EVERY MCG/ACT Inhalation Aero FOUR HOURS Soln NEEDED (shortness of breath, cough or wheeze). albuterol (ACCUNEB) 1.25 mg by 0 Active 1.25 MG/3ML Inhalation Inhalation-SVN Nebu Soln route NEEDED. Thiamine HCl (VITAMIN Take 1 Tab by 90 Tab 3 2019 Active B-1) 100 MG Oral mouth DAILY. TabIndications: Thiamine deficiency Omeprazole 40 MG Oral Take 1 Cap by 60 Cap 5 04/16/2019 Active CAPSULE DELAYED mouth TWICE RELEASEIndications: DAILY. Gastroesophageal reflux disease, esophagitis presence not specified topiramate (TOPAMAX) 25 Take 1 Tab by 120 Tab 3 05/25/2019 Active MG Oral Tab mouth DIRECTED. 50 Mg in AM, 50 afternoon, 100 Mg at bedtime. Topiramate 50 MG Oral Take 2 Tabs by 60 Tab 0 05/25/2019 Active Tab mouth EVERY BEDTIME. lamotrigine (LAMICTAL) Take 1 Tab by 60 Tab 0 06/23/2019 Active 25 MG Oral Tab mouth DIRECTED. Increase per written directions mirtazapine (REMERON) Take 1 Tab by 30 Tab 1 07/06/2019 Active 15 MG Oral mouth EVERY TabIndications: Weight BEDTIME. loss, unintentional documented as of this encounter (statuses as of 07/06/2019) Active Problems Problem Noted Date Seizure Anxiety and depression Chronic migraine documented as of this encounter (statuses as of 07/06/2019) Resolved Problems Problem Noted Date Resolved Date Type 2 diabetes mellitus 04/01/2019 documented as of this encounter (statuses as of 07/06/2019) Immunizations Name Administration Dates Next Due Influenza [...] Sign Reading Time Taken Comments Blood Pressure 118/64 07/06/2019 8:35 AM EST Pulse 91 07/06/2019 8:35 AM EST Temperature 36.2 07/06/2019 8:35 AM EST C (97.2 F) Respiratory Rate - - Oxygen Saturation 99% 07/06/2019 8:35 AM EST Inhaled Oxygen Concentration - - Weight 62.6 kg (138 lb) 07/06/2019 8:35 AM EST Height 165.1 cm (5' 5") 07/06/2019 8:35 AM EST Body Mass Index 22.96 07/06/2019 8:35 AM EST documented in this encounter Patient Instructions Patient InstructionsRegina Potter NP - 07/06/2019 8:20 AM ESTStop Cymbalta - and start Mirtazapine 15 mg at bedtime. Do labs today. I will let you know about doing imaging. Follow up in 3-4 weeks. documented in this encounter Progress Notes Regina Potter NP - 07/06/2019 8:20 AM EST PATIENT: Marquita Sharma : 1980 DATE OF SERVICE: 07/06/2019 CHIEF COMPLAINT: Chief Complaint Patient presents with Check Up alex horses in both legs x1 month, constant, also having more seizures then before Subjective HISTORY OF PRESENT ILLNESS: Marquita Sharma is a 39-y.o. female. HPI Review of the hospitalization: I am seeing for transition of care following Emergency Room evaluation at [facility]. The date of emergency room visit was 07/01/19 Patient to ED for bilat leg pain for one week, with history of dvt's reported. Labs were unremarkable including cbc, CMP, coags. Ultrasound leg within normal limits bilat, no dvt. Feels like legs are swelling, bruising, and trouble sleeping at night. Has tried magnesium not helping. Tried flexeril at hospital and also did not help. Toradol did help. Burning feeling. From feet to back of thighs. Getting up during the night to walk. Also feeling during the day, especially when at work - but worse at night. Working at [employer] doing 13 hour shifts, has been working 60-100 hours per week. Work is understaffed. Appetite is decreased, she's not drinking, she's losing weight - 13 lbs in 3 months, unintentional. Feels like her ribs and hips are now showing. Her seizures are increasing since her last visit with neurology. She has left her and has full custody of her son. She has a protective order against him. Anne had to come to the house. This happened 06/07/19. Neurology started her on lamictal last vist. Had a seizure last week and then unconscious for 10 minutes. Feels its not working yet. She had an appointment with neurology today but it was canceled last minute by Jessica and not rescheduled until August. She does feel this sometimes happens while she is driving. She is able to continue driving without incident but then does not remember how she got where she is going. She has OV with her bariatric surgeon ([facility]) July 25. Not seeing therapist at this time. Mammogram was done January 2019 - within normal limits Pap was January 2019 - within normal limits. Dr. Maynard at [facility]. Past Medical History: Diagnosis Date Anxiety and depression Migraine VONDA (obstructive sleep apnea) Pulmonary embolism (HCC) 2016 after sprained ankle immobility + depot + obese at that time Seizure (HCC) Type 2 diabetes mellitus ([facility]) No family history on file. Current Outpatient [...] 1 Cap by mouth TWICE DAILY. Pediatric Qcnqdgke-Srsxscuh-Y (VITAMAX) 60 MG Oral Chew Tab Take [...] Reactions Bee Anaphylaxis Latex Respiratory Reaction Morphine CRYSTAL GAZER Reaction Prozac [Fd&C Blue #1-Fd&C Yellow #6-Fluoxetine] [...] file Gets together: Not on file Attends sikh service: Not on file Active member of [...] Narrative Not on file REVIEW OF SYSTEMS: Review of Systems Constitutional: Positive for chills (hot flash before seizures), diaphoresis ( right before seizures), malaise/fatigue and weight loss. Negative for fever. HENT: Negative for congestion, ear discharge, ear pain, sinus pain and sore throat. Eyes: Negative for pain, discharge and redness. Respiratory: Negative for cough and shortness of breath. Cardiovascular: Positive for leg swelling (helpful to elevate legs with heating pad). Negative for chest pain and palpitations. Gastrointestinal: Positive for abdominal pain and vomiting (with seizures). Negative for blood in stool, constipation, diarrhea and nausea. Genitourinary: Negative for dysuria, frequency, hematuria and urgency. Musculoskeletal: Positive for myalgias (bilat legs). Negative for back pain, joint pain and neck pain. Neurological: Positive for sensory change (bilat legs yesterday) and headaches ( migraines). Negativefor dizziness, tingling and weakness. Psychiatric/Behavioral: Positive for depression (reactive). Negative for substance abuse and suicidal ideas. The patient is nervous/anxious and has insomnia (d/t leg pain). Objective PHYSICAL EXAM: VITALS: BP 118/64 (BP Location: Left arm, Patient Position: Sitting) | Pulse 91 | Temp 97.2 F(36.2 C) (Tympanic) | Ht 5' 5" (1.651 m) | Wt 138 lb (62.6 kg) | SpO2 99% | BMI 22.96 kg/m Body mass index is 22.96 kg/m. Physical Exam Vitals signs and nursing note reviewed. Constitutional: General: She is not in acute distress. Appearance: Normal appearance. She is well-developed. She is not ill- appearing. Cardiovascular: Rate and Rhythm: Normal rate and regular rhythm. Heart sounds: Normal heart sounds. No murmur. No friction rub. No gallop. Pulmonary: Effort: Pulmonary effort is normal. No respiratory distress. Breath sounds: Normal breath sounds. Abdominal: General: Abdomen is flat. Bowel sounds are normal. There is no distension. Palpations: Abdomen is soft. Abdomen is not rigid. There is no hepatomegaly, splenomegaly or mass. Tenderness: There is no abdominal tenderness. There is no right CVA tenderness, left CVA tenderness, guarding or rebound. Negative signs include Ramesh's sign and McBurney's sign. Hernia: No hernia is present. Musculoskeletal: Right ankle: She exhibits normal range of motion, no swelling, no ecchymosis , no deformity, no laceration and normal pulse. Tenderness. Lateral malleolus tenderness found. No medial malleolus tenderness found. Left ankle: She exhibits normal range of motion, no swelling, no ecchymosis, no deformity, no laceration and normal pulse. No tenderness. Right lower leg: She exhibits no tenderness and no swelling. No edema. Left lower leg: She exhibits no tenderness and no swelling. No edema. Neurological: General: No focal deficit present. Mental Status: She is alert. Psychiatric: Mood and Affect: Mood and affect normal. Speech: Speech normal. Behavior: Behavior normal. Behavior is cooperative. ASSESSMENT / IMPRESSION: ICD-9-CM ICD-10-CM 1. Weight loss, unintentional 783.21 R63.4 COMPREHENSIVE METABOLIC PANEL CBC NO DIFFERENTIAL VITAMIN B12 / FOLATE VITAMIN D 25 HYDROXY (PERALTA) VITAMIN B1, PLASMA (FASTING) FERRITIN TOTAL IRON BINDING CAPACITY IRON REFER TO GI IRON TOTAL IRON BINDING CAPACITY FERRITIN VITAMIN B1, PLASMA (FASTING) VITAMIN D 25 HYDROXY (PERALTA) VITAMIN B12 / FOLATE CBC NO DIFFERENTIAL COMPREHENSIVE METABOLIC PANEL 2. Bilateral leg cramps 729.82 R25.2 Plan I reviewed the emergency room note, discharge instructions, and pertinent additional documentation obtained during the visit. I reconciled the medications. The tests that were not available at the time of discharge were reviewed. Additional tests which are not yet available include: n/a Coordination of care. - Additional testing related to hospitilization was requested today: yes See orders. I confirmed the patient's understanding of the diagnosis and plan of care. Specific education that was provided today: There are no Patient Instructions on file for this visit. 1. Weight loss, unintentional This could be stress related as symptoms started around major lifechanging events described above. Screenings are utd Will do labs and refer to GI. Start mirtazapine qhs. Consider imaging in future if continues Follow up in 3-4 weeks. - COMPREHENSIVE METABOLIC PANEL; Future - CBC NO DIFFERENTIAL; Future - VITAMIN B12 / FOLATE; Future - VITAMIN D 25 HYDROXY (PERALTA); Future - VITAMIN B1, PLASMA (FASTING); Future - FERRITIN; Future - TOTAL IRON BINDING CAPACITY; Future - IRON; Future - REFER TO GI; Future - IRON - TOTAL IRON BINDING CAPACITY - FERRITIN - VITAMIN B1, PLASMA (FASTING) - VITAMIN D 25 HYDROXY (PERALTA) - VITAMIN B12 / FOLATE - CBC NO DIFFERENTIAL - COMPREHENSIVE METABOLIC PANEL 2. Bilateral leg cramps Lab work - if normal, treatment leg stretches before bed, stay hydrated, vitamin b complex tid, - ifno relief then recommend bendaryl 25mg qhs. Follow up: 3-4 weeks. Author: Regina Potter NP 07/06/2019 12:27 documented in this encounter Plan of Treatment Date Type Specialty Care Team Description 07/28/2019 Office Visit Family Practice Regina Potter NP [address] [place] [address] [phone] 08/20/2019 Office Visit Neurology Melinda Mar PA-C [address] [id number] Name Type Priority Associated Diagnoses Date/Time COMPREHENSIVE METABOLIC Lab Routine Weight loss, 07/06/2019 9:34 AM PANEL unintentional EST CBC NO DIFFERENTIAL Lab Routine Weight loss, 07/06/2019 9:34 AM unintentional EST VITAMIN B12 / FOLATE Lab Routine Weight loss, 07/06/2019 9:34 AM unintentional EST VITAMIN D 25 HYDROXY Lab Routine Weight loss, 07/06/2019 9:34 AM (PERALTA) unintentional EST VITAMIN B1, PLASMA Lab Routine Weight loss, 07/06/2019 9:34 AM (FASTING) unintentional EST FERRITIN Lab Routine Weight loss, 07/06/2019 9:34 AM unintentional EST TOTAL IRON BINDING Lab Routine Weight loss, 07/06/2019 9:34 AM CAPACITY unintentional EST IRON Lab Routine Weight loss, 07/06/2019 9:34 AM unintentional EST Name Type Priority Associated Diagnoses Order Schedule COMPREHENSIVE METABOLIC Lab Routine Weight loss, Expected: 07/06/2019 PANEL unintentional (Approximate), Expires: 07/06/2020 CBC NO DIFFERENTIAL Lab Routine Weight loss, Expected: 07/06/2019 unintentional (Approximate), Expires: 07/06/2020 VITAMIN B12 / FOLATE Lab Routine Weight loss, Expected: 07/06/2019 unintentional (Approximate), Expires: 07/06/2020 VITAMIN D 25 HYDROXY Lab Routine Weight loss, Expected: 07/06/2019 (PERALTA) unintentional (Approximate), Expires: 07/06/2020 VITAMIN B1, PLASMA Lab Routine Weight loss, Expected: 07/06/2019 (FASTING) unintentional (Approximate), Expires: 07/06/2020 FERRITIN Lab Routine Weight loss, Expected: 07/06/2019 unintentional (Approximate), Expires: 07/06/2020 TOTAL IRON BINDING Lab Routine Weight loss, Expected: 07/06/2019 CAPACITY unintentional (Approximate), Expires: 07/06/2020 IRON Lab Routine Weight loss, Expected: 07/06/2019 unintentional (Approximate), Expires: 07/06/2020 Name Type Priority Associated Diagnoses Order Schedule REFER TO GI Referral Routine Weight loss, unintentional Expected: 2019, Expires: 07/06/2020 Health Maintenance Due Date Last Done Comments Diabetic Eye Exam 1980 PNEUMOCOCCAL 0-64 YRS (1 of 02/10/1984 - PPSV23) DTaP/Tdap/Td Vaccines ( - 1989 Tdap) HIV SCREENING 1993 FOOT [...] symptoms of depression. Keep immunizations current Lifestyle Aleks Lee DO Note: This is an individualized lifestyle goal for Marquita Sharma: Please be sure to keep up-to-date on recommended immunizations. For example, this would include a yearly influenza vaccine. Immunization status can be seen by looking at the Health Maintenance sections of your [facility], Plan of Care, and any After Visit Summaries. Take all prescribed medications as directed Self-management Aleks Lee DO Note: This is an individualized self-management [...] filedocumented in this encounter Visit Diagnoses Diagnosis Weight loss, unintentional Loss of weight Bilateral leg cramps documented in this encounter Insurance Payer Benefit Plan / Subscriber ID Effective Dates Phone Address Type Group RJ Thom RJ [facility] xxxxxxxxxxx 2019-Present Rj documented as of this encounter
[2019-07-12 04:21] VITALS: BP 132/74
[2019-07-12 04:38] LABS: Urine Bacteria Absent (Absent); Urine Red Blood Cell 3+(>10/hpf) (Absent); Urine Squamous Epithelial Cell Present (Absent); Urine White Blood Cell 3+(>20/hpf) (Absent)
--- NOTE | 2019-07-14 10:17 | ED ---
Imaging and Labs Follow Up Follow Up Type: Labs/Cultures Labs/Culture Result: Urine culture growing 50-75k e.coli. Patient Communication/Plan: Pt. tx with macrobid, which is susceptible. No change in treatment needed. Provider Diagnoses: UTI (urinary tract infection)
== END 2019-07-12 04:19 | disposition home or self-care (01) ==
LOC: ED 03:30
DX: N39.0 Urinary tract infection, site not specified (principal); R11.0 Nausea; G43.909 Migraine, unspecified, not intractable, without status migrainosus; R56.9 Unspecified convulsions; Z90.710 Acquired absence of both cervix and uterus; Z88.5 Allergy status to narcotic agent; Z88.8 Allergy status to other drugs, medicaments and biological substances; Z91.030 Bee allergy status; Z91.040 Latex allergy status; F17.200 Nicotine dependence, unspecified, uncomplicated
CPT/HCPCS: 81003; 81015; 87077; 87086; 87186; 99283; A9270-GY